=== PATIENT | female | born 2000 | race Caucasian/White ===

== ENCOUNTER → 2020-10-07 15:24 | Outpatient (BNVA) | payer OTHER, SELFPAY | PROVIDERS: Visit Provider Internal Medicine Gastroenterology ==

== ENCOUNTER 2021-07-21 14:54 | Outpatient (REF) | payer OTHER, SELFPAY ==
[2021-07-21 16:50] LABS: Hematocrit 42.3 % (37.0-47.0); Hemoglobin 14.6 g/dl (12.0-16.0); Mean Corpuscular HGB Conc 34.5 g/dl (31.0-35.0); Mean Corpuscular Hemoglobin 29.7 pg (27.0-33.0); Mean Corpuscular Volume 86.2 fL (80.0-98.0); Mean Platelet Volume 9.5 fL (9.4-12.3); Platelet Count 327 X10*3/uL (160-400); Red Blood Count 4.91 X10*6/uL (4.20-5.50); Red Cell Distribution Width 12.2 % (11.0-16.0); White Blood Count 6.6 X10*3/uL (4.8-10.8)
[2021-07-21 17:47] LABS: Alanine Aminotransferase 16 U/L (0-31); Alkaline Phosphatase 59 U/L (39-117); Anion Gap 15 (12-20); Aspartate Amino Transferase 20 U/L (5-31); Bilirubin Total 0.6 mg/dL (0.0-1.0); Blood Urea Nitrogen 8 mg/dL (9-16); Calcium 9.7 mg/dL (8.4-10.2); Carbon Dioxide 25 mmol/L (22-29); Chloride 106 mmol/L (96-108); Estimated Glomerular Filt Rate > 60; Glucose Random 93 mg/dL (60-115); Potassium 4.8 mmol/L (3.3-5.1); Sodium 141 mmol/L (135-145); Total Protein 7.5 g/dL (6.5-8.0)
[2021-07-21 18:03] LABS: TSH reflex Free T4 1.06 uIU/mL (0.32-4.0)
[2021-07-25 17:36] LABS: Transglutaminase Ab IgG <1.0 U/mL; Transglutaminase IgA <1.0 U/mL
== END 2021-07-21 14:55 | disposition home or self-care (01) ==
LOC: HO.LAB 14:54
PROVIDERS: Visit Provider Nurse Practitioner Family
DX: R10.11 Right upper quadrant pain (principal); K58.9 Irritable bowel syndrome, unspecified; R14.0 Abdominal distension (gaseous); K58.1 Irritable bowel syndrome with constipation; K21.9 Gastro-esophageal reflux disease without esophagitis; R11.0 Nausea
CPT/HCPCS: 36415; 80053; 83516; 84443; 85027

== ENCOUNTER → 2021-10-28 10:19 | Outpatient (BNVA) | payer OTHER, SELFPAY | PROVIDERS: Visit Provider Nurse Practitioner Family ==

== ENCOUNTER 2021-12-23 13:19 | Outpatient (REF) | payer OTHER, SELFPAY ==
[2021-12-24 12:10] LABS: BV Int Neg Control Negative (Negative); BV Int Pos Control Positive (Positive)
[2021-12-24 12:40] LABS: CT PCR NOT DETECTED (Not Detect.); NG PCR NOT DETECTED (Not Detect.)
== END 2021-12-23 13:20 | disposition home or self-care (01) ==
LOC: HO.LAB 13:19
PROVIDERS: Visit Provider Advanced Practice Midwife
DX: Z01.411 Encounter for gynecological examination (general) (routine) with abnormal findings (principal); Z20.2 Contact with and (suspected) exposure to infections with a predominantly sexual mode of transmission; R10.9 Unspecified abdominal pain; N94.6 Dysmenorrhea, unspecified
CPT/HCPCS: 87480; 87491; 87510; 87591; 87660; 88142

== ENCOUNTER 2022-01-02 14:18 | Outpatient (REF) | payer OTHER, SELFPAY ==
--- NOTE | ~2022-01-02 | US_ITS ---
EXAMINATION: US PELVIS CLINICAL INFORMATION: Dysmenorrhea. Pelvic pain. COMPARISON: CT abdomen pelvis without contrast 02/27/2019 TECHNIQUE: Ultrasound of the pelvis is performed using both transabdominal and transvaginal transducers along with Doppler. Transvaginal imaging is performed due to inadequate visualization transabdominally. FINDINGS: Uterus: The uterus is anteverted and measures 5.96 x 2.12 x 3.54 cm The double wall endometrial thickness is 0.39 cm. The uterus is smooth in contour and has normal myometrial echogenicity. No visible fibroid. Adnexa: Both ovaries are visualized. There is normal color flow to the adnexa. There is no ovarian torsion. There is no pelvic ascites or fluid collection. Right ovary measures 2.41 x 1.25 x 2.67 cm and volume 4.21 mL Left ovary measures 1.3 x 1.09 x 1.14 cm and volume 0.90 mL. There is no free fluid in the cul-de-sac. US/US pelvic and transvaginal IMPRESSION: Unremarkable pelvic ultrasound.
== END 2022-01-02 14:19 | disposition home or self-care (01) ==
LOC: HO.HMGCX 14:18
PROVIDERS: Visit Provider Advanced Practice Midwife
DX: R10.2 Pelvic and perineal pain (principal); N94.6 Dysmenorrhea, unspecified
CPT/HCPCS: 76830; 76856

== ENCOUNTER → 2022-01-16 15:08 | Outpatient (BNVA) | payer OTHER, SELFPAY | PROVIDERS: Visit Provider Advanced Practice Midwife | DX: Z13.89 Encounter for screening for other disorder (principal) ==

== ENCOUNTER 2023-05-20 14:17 | Outpatient (AMB) | payer OTHER, SELFPAY ==
[2023-05-20 14:32] VITALS: BP 120/76; BMI 36.6
--- NOTE | 2023-05-20 14:32 | A.OFFVIS_ITS ---
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 Scribed for RO Hammond by Lilia Blackwood durable medical equipment repairer, on 05/20/2023 at 2:50 pm EST. Loading Manager: Loading Manager Present (Angela) Allergies No Known Allergies Allergy (Verified 05/20/23 14:32) HPI HPI Comments History of Present Illness Details She is a premenopausal woman presenting for annual exam. Doing well with no entry level receptionist concerns. She admits to eating healthy and tries to stay active with exercise. Currently sexually active. Uses OCP for BC and is doing well, no menses in the past 6 months due to not taking a placebo week off. Denies vaginal itching and irritation. Reports vaginal irritation last week, believes it was due to over use of detergent, used hydrocortisone on the area and is now doing better. STD screening offered; she declines. Denies family hx of colon and ovarian cancer. Last pap smear 12/24/21. She denies any contraindications to control such as: migraines with aura, history of DVT or pulmonary emboli, high blood pressure, liver disease, thrombolic disorders, Lupus, +RAMSEY, or smoking. Reports occasional headaches. 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 Sexual orientation: Straight/Heterosexual Gender identity: Female Female Reproductive History Menstrual Age of Menarche: 9 control method: pills Total pregnancies: 0 Date of last pap smear: 12/24/21 (neg) Physical Exam Vital Signs: Last Vital Signs BP 120/76 05/20/23 14:32 BMI result Body Mass Index 36.6 Const General: cooperative, healthy appearing, no acute distress, well developed and alert Orientation/consciousness: patient oriented x3 HEENT Head: Yes normal to inspection Eyes General: appearance normal, both eyes and all related structures Neck Neck: Yes normal visual inspection Thyroid: Thyroid normal Chest Chest palpation & inspection: normal inspection of the chest Breast/axilla inspection: normal inspection of the breasts (no puckering, dimpling, peau de orange, retraction, discharge, masses) Breast/axilla palpation: normal palpation of the breasts Resp Effort & Inspection: normal respiratory effort GI Inspection: Yes normal to inspection Palpation (GI): Soft to palpation (to palpation) Rectal Exam - Female: deferred General: Yes bladder normal to inspection External Female Exam: normal external appearance and normal appearance of the urethra Speculum Exam - Vagina: normal appearance of the vagina, normal palpation and abnormal vaginal discharge white (clumpy) Speculum Exam - Cervix: normal appearance of the cervix and normal palpation Bimanual exam- vagina & uterus: normal palpation and normal palpation Bimanual Exam- Adnexa, other: normal adnexae and no masses Skin General skin exam: no rashes or lesions noted Neuro General: patient oriented x3 Cognition (Neuro): normal cognition Extrem General: Yes normal to inspection Psych Attitude: cooperative Thought process: Normal thought process present Assessment & Plan Assessment & Plan (1) Encounter for well woman exam: Code(s): Z01.419 - Encounter for gynecological examination (general) (routine) without abnormal findings Plan: Discussed: Current recommendations for pap smears per ASCCP guidelines. Breast awareness and periodic self breast exams. Maintaining a healthy lifestyle including a well balanced diet and routine exercise. All of her questions and concerns were addressed to the best of my ability. RTO in one year for AG. (2) Contraceptive surveillance: Code(s): Z30.40 - Encounter for surveillance of contraceptives, unspecified Plan: She was instructed to go to ER if she develops loss of vision, severe headache that does not resolve, chest pain, difficulty breathing, abdominal pain, or pain or tenderness in extremity. Call the office with any concerns. (3) Head ache: Code(s): R51.9 - Headache, unspecified Plan: Advised to hydrate well to avoid dehydration. (4) Vaginal discharge: Code(s): N89.8 - Other specified noninflammatory disorders of vagina Plan: BV testing done today. Await results and treat accordingly. Orders: Orders Bacterial Vaginosis Panel Today N89.8 - Other specified noninflammatory disorders of vagina Medications: Refilled desog-e.estradiol/e.estradiol 0.15-0.02 mgx21 /0.01 mg x 5 (Homer (28)) skip placebo week, take the pill daily-continuous daily dosing 1 tab PO DAILY 84 tabs 4RF Coding Level of Care Code Est Pt Prev Care 18-39y(19421) Diagnoses Encounter for well woman exam Z01.419 Contraceptive surveillance Z30.40 Head ache R51.9 Vaginal discharge N89.8
== END 2023-05-20 15:05 | disposition home or self-care (01) ==
PROVIDERS: PCP Family Medicine; Visit Provider Advanced Practice Midwife
DX: Z01.419 Encounter for gynecological examination (general) (routine) without abnormal findings (principal); Z30.40 Encounter for surveillance of contraceptives, unspecified; R51.9 Headache, unspecified; N89.8 Other specified noninflammatory disorders of vagina
CPT/HCPCS: 99395

== ENCOUNTER 2023-05-20 14:17 | Outpatient (REF) | payer OTHER, SELFPAY ==
[2023-05-21 11:38] LABS: BV Int Neg Control Negative (Negative); BV Int Pos Control Positive (Positive)
== END 2023-05-20 14:18 | disposition home or self-care (01) ==
LOC: HO.LAB 14:17
PROVIDERS: PCP Family Medicine; Visit Provider Advanced Practice Midwife
DX: Z01.419 Encounter for gynecological examination (general) (routine) without abnormal findings (principal); N89.8 Other specified noninflammatory disorders of vagina; R51.9 Headache, unspecified
CPT/HCPCS: 87480; 87510; 87660

== ENCOUNTER 2023-11-16 09:20 | Outpatient (AMB) | payer OTHER, SELFPAY ==
[2023-11-16 09:37] VITALS: BP 140/87; PULSE 115; BMI 34.6
--- NOTE | 2023-11-16 09:37 | A.OFFVIS_ITS ---
Intake Vital Signs 11/16/23 09:37 Height 5 ft 4 in Weight 201 lb 11.567 oz BMI 34.6 BP 140/87 H Blood Pressure Location Lt brachial Position Sitting Pulse 115 H Pulse Source Pulse Oximeter Intake Visit Reasons: follow up stool concerns Intake Note: Pt presents to the office today for a follow up for stool concerns. She states she had an issue in October with her stool being bright yellow for a week that wasnt solid. She is very frustrated because she is unable to each anything other than saltines and sometimes egg noodles. She states she doesn't know what to do. Pt states she will get nauseous from not eating much but denies any vomiting. She also states she will have constipation and diarrhea at different times. Allergies No Known Allergies Allergy (Verified 11/16/23 09:38) HPI follow up stool concerns HPI Details LAST VISIT IBS (irritable colon syndrome) Occasional postprandial abdominal cramping and bloating. Patient can continue dicyclomine, however I would like for her to move her bowels better. Patient was encouraged to try to drink senna tea if senna 1 or 2 tablets a day are not effective. Continue FODMAP diet, avoid dietary triggers. GERD (gastroesophageal reflux disease) Continue famotidine as ordered. Continue avoiding stressors and dietary triggers. Staying upright for minimal 3 hours after meals discussed with patient. Patient does have occasional epigastric discomfort and I will send her for upper endoscopy to further evaluate. Patient might need to switch to PPI instead. Treatment pending upper endoscopy results. Constipation Increase fluid intake, increase activity to promote better bowel motility. Eat more vegetables and fruits. Take Senokot 1-2 tablets every evening. Patient will call me if she will continue to be constipated. I will see patient after upper endoscopy, sooner on as needed basis. Patient is agreeable to this plan and verbalizes understanding of instructions. She was given the opportunity to ask questions and all questions answered. ? TODAY'S VISIT: Patient is here today for requested visit. Patient was seen in May of 2022. Patient never followed up. Patient states that she was starting to feel better and had things going on in her personal life. Patient states that she wa s moving and changing jobs. In October patient reports to have loose stools for 1 week 7 on [place] scale. Since then patient has been only able to tolerate sodium crackers and egg noodles. Patient frequently feels nauseous, epigastric discomfort and loose stools immediately after she eats anything else. Patient was taking in the past cholestyramine that was semi helpful. Patient has a history of cholecystectomy in 2017. Since then patient has been developing postprandial loose stools, occasional constipation. Lately her symptoms are exacerbated that she is not understanding why. Patient states that she has not change anything in her diet or any lifestyle. Patient gained 25 lb since last visit. Patient reports that she has not eat anything different. No travel to any exotic areas. 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 Sexual orientation: Straight/Heterosexual Gender identity: Female Female Reproductive History Menstrual Age of Menarche: 9 Review of Systems Const Denies weight gain and Denies weight loss ENT Reports no additional complaints, Denies dysphagia and Denies odynophagia Card Reports no additional complaints Resp Reports no additional complaints GI Reports abdominal pain, Denies belching, Denies melena, Reports bloating, Denies change in bowel habits, Denies dysphagia, Denies excessive flatus, Denies dyspepsia, Denies heartburn, Denies diarrhea, Reports loose stools, Reports nausea, Denies odynophagia and Denies vomiting Reports no additional complaints Musc Reports no additional complaints Neuro Reports no additional complaints Psych Reports no additional complaints Endo Reports no additional complaints Physical Exam Vital Signs: Last Vital Signs Pulse 115 H 11/16/23 09:37 BP 140/87 H 11/16/23 09:37 BMI result Body Mass Index 34.6 Const General: healthy appearing, no acute distress and well developed Nutritional Appearance: obese Orientation/consciousness: patient oriented x3 Resp Effort & Inspection: normal respiratory effort, able to speak in complete sentences, no tracheal deviation and symmetric chest movement Auscultation: clear to auscultation bilaterally Cardio Rate: regular rate GI Inspection: Yes normal to inspection, No distended and Yes obesity Palpation (GI): Soft to palpation, not firm, nontender and No hepatosplenomegaly present Auscultation: normal bowel sounds General: Yes no CVA tenderness Back/Spine/Pelvis Back: no CVA tenderness Skin General skin exam: elasticity normal, turgor normal and dry skin Neuro General: patient oriented x3 Psych Appearance: grossly normal Mental Status: mental status grossly normal Assessment & Plan Assessment & Plan (1) IBS (irritable colon syndrome): Code(s): K58.9 - Irritable bowel syndrome without diarrhea Qualifiers: Irritable bowel syndrome type: with constipation Qualified Code(s): K5 8.1 - Irritable bowel syndrome with constipation (2) Nausea: Code(s): R11.0 - Nausea (3) GERD (gastroesophageal reflux disease): Code(s): K21.9 - Gastro-esophageal reflux disease without esophagitis Qualifiers: Esophagitis presence: esophagitis presence not specified Qualified Code(s): K21.9 - Gastro-esophageal reflux disease without esophagitis (4) Postprandial diarrhea: Code(s): K52.9 - Noninfective gastroenteritis and colitis, unspecified (5) S/P cholecystectomy: Code(s): Z90.49 - Acquired absence of other specified parts of digestive tract Plan Patient will try to increase fiber to help her bulk stools. One tablet daily up to 2 tablets if she will continue with symptoms. Patient can take senna if she will become bound up. Low FODMAP diet discussed with patient. List of food recommended as well as list of food to avoid given to patient. Will rule out inflammatory bowel disease. Will check A1c, thyroid study, vitamin-D, B12, folate. Will order GI panel. I will see patient in 2 months, sooner on as needed basis. Patient will call the office if she will continue to have these symptoms. Patient is agreeable to this plan and verbalizes understanding of instructions. She was given the opportunity to ask questions and all questions answered. Thank you for allowing me to participate in her care Orders: Orders Hemoglobin A1c Today E11.9 - Type 2 diabetes mellitus without complications C Reactive Protein Today K58.9 - Irritable bowel syndrome without diarrhea Vitamin B12 and Folate Today R19.7 - Diarrhea, unspecified TSH reflex Free T4 Today K59.00 - Constipation, unspecified Calprotectin, Fecal Today R15.9 - Full incontinence of feces GI Panel Today R19.7 - Diarrhea, unspecified Vitamin D 25-OH (D2 and D3) Today E55.9 - Vitamin D deficiency, unspecified Medications: New methylcellulose (laxative) (Citrucel) take it with full glass of water 500 mg PO DAILY 90 tabs 2RF K59.00 - Constipation, unspecified omeprazole 20 mg PO DAILY 30 caps 3RF K21.9 - Gastro-esophageal reflux disease without esophagitis Coding Level of Care Code Est Pt Level 4 (57664) Diagnoses Irritable bowel syndrome with constipation K58.1 Irritable bowel syndrome type: with constipation Nausea R11.0 Gastroesophageal reflux disease, unspecified whether esophagitis present K21.9 Esophagitis presence: esophagitis presence not specified Postprandial diarrhea K52.9 S/P cholecystectomy Z90.49 Time Spent (min) 40 Comment 25 minutes spent with patient and additional 15 minutes spent reviewing her records
== END 2023-11-16 10:10 | disposition home or self-care (01) ==
PROVIDERS: PCP Nurse Practitioner Family; Visit Provider Nurse Practitioner Family
DX: K58.2 Mixed irritable bowel syndrome (principal); R11.0 Nausea; K21.9 Gastro-esophageal reflux disease without esophagitis; Z90.49 Acquired absence of other specified parts of digestive tract
CPT/HCPCS: 99214

== ENCOUNTER → 2023-11-16 09:20 | Outpatient (BNVA) | payer OTHER, SELFPAY | PROVIDERS: PCP Nurse Practitioner Family; Visit Provider Nurse Practitioner Family ==

== ENCOUNTER 2023-11-19 08:20 | Outpatient (REF) | payer OTHER, SELFPAY ==
[2023-11-20 15:14] LABS: BV Int Neg Control Negative (Negative); BV Int Pos Control Positive (Positive)
== END 2023-11-19 08:21 | disposition home or self-care (01) ==
LOC: HO.LNP 08:20
PROVIDERS: PCP Nurse Practitioner Family; Visit Provider Advanced Practice Midwife
DX: Z32.02 Encounter for pregnancy test, result negative (principal); R10.2 Pelvic and perineal pain; N92.1 Excessive and frequent menstruation with irregular cycle
CPT/HCPCS: 81025; 87480; 87510; 87660

== ENCOUNTER 2023-11-19 08:20 | Outpatient (AMB) | payer OTHER, SELFPAY ==
[2023-11-19 08:25] VITALS: BP 122/70; BMI 34.4
--- NOTE | 2023-11-19 08:25 | A.OFFVIS_ITS ---
Intake Vital Signs 11/19/23 08:25 Height 5 ft 4 in Weight 200 lb 9.93 oz BMI 34.4 BP 122/70 Intake Visit Reasons: bleeding Intake Note: c/o of spotting with control pills Employment Programs Analyst Required: No Information Interpreted: non-clinical & clinical Plaster Machine Tender: Plaster Machine Tender Present (Parris TORRES) Accompanied by: Self / Same As Patient Allergies No Known Allergies Allergy (Verified 11/19/23 08:26) Is last menstrual period known: No HPI HPI Comments History of Present Illness Details Patient presents with breakthrough bleeding while on the control pill, she admits to missing one dose at the end of October. Onset of bleeding started around November 03. She reports some pelvic pressure around her cervix and ovary on her left side. She admits to an occasional pain at the outer portion the and at the top of the vaginal canal during intimacy, about 50% of the time. She denies any urinary symptoms. Has an occasional cloudy vaginal discharge with a sweet odor. She is also seeing GI for symptoms of significant diarrhea, onset was a few days before the bleeding started. She reports everything that she eats goes right through her. She is trying to hydrate well. She denies any fever or flu-like sy mptoms. Partner with a history of testicular cancer in infertility. Denies any risk to . [facility] Medical History (Updated 11/19/23 @ 08:28 by Parris Amanda CMA) Overweight Head ache Dysmenorrhea IBS (irritable colon syndrome) Nausea GERD (gastroesophageal reflux disease) Irritable bowel syndrome with diarrhea Surgical History Hx of cholecystectomy Hx of endoscopy Hx of colonoscopy Family History Mother Diabetes Obese Father Obese HTN (hypertension) Maternal Uncle Cancer Maternal Aunt Breast cancer Social History Household Members: Spouse Alcohol intake: current Alcohol intake frequency: a few times a month Patient Tobacco Use Status: Never used Tobacco Current occupational status: employed 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 Sexual orientation: Straight/Heterosexual Gender identity: Female Female Reproductive History Menstrual Age of Menarche: 9 Review of Systems Const All systems reviewed & are unremarkable except as noted in HPI and below Physical Exam Vital Signs: Last Vital Signs BP 122/70 11/19/23 08:25 BMI result Body Mass Index 34.4 Const General: cooperative, healthy appearing and no acute distress Orientation/consciousness: patient oriented x3 GI Inspection: Yes normal to inspection Palpation (GI): Soft to palpation and Other GI palpation findings present (Nontender) Rectal Exam - Female: visual inspection normal General: Yes bladder normal to palpation External Female Exam: normal appearance of the urethra Speculum Exam - Vagina: normal appearance of the vagina, normal palpation and normal vaginal discharge Speculum Exam - Cervix: normal appearance of the cervix and normal palpation Bimanual exam- vagina & uterus: normal bimanual exam, normal palpation, uterine size normal, bladder normal to palpation, normal palpation, uterine shape normal and non-tender Bimanual Exam- Adnexa, other: normal adnexae and tender (Right side) Neuro General: patient oriented x3 Results AMB Test Urine AMB Test Urine Negative Last Edit by Parris Amanda CMA on 09:10 Results Reviewed Results Reviewed: Laboratory Last Values [facility]st Clinic Negative 11/19/23 09:09 Assessment & Plan Assessment & Plan (1) Pelvic pain: Code(s): R10.2 - Pelvic and perineal pain (2) Breakthrough bleeding on control pills: Code(s): N92.1 - Excessive and frequent menstruation with irregular cycle Plan Discussed: Most likely ongoing bleeding is due to missed pill and she would regulate soon, although has a significant GI issue which could be contributing to how she been feeling. Plan pelvic ultrasound, BV panel. Encouraged her to continue hydration, and follow up with GI. Follow-up ultrasound results in person. All of her questions and concerns were addressed to the best of my ability and shared decision making. She is agreeable to the plan of care. This note is constructed using voice recognition software. While every effort has been made to ensure accuracy, child and adolescent psychologist errors may have been included. Orders: Orders AMB HCG Urine Test Today Z32.02 - Encounter for test, result negative US pelvic and transvaginal Today R10.2 - Pelvic and perineal pain Bacterial Vaginosis Panel Today R10.2 - Pelvic and perineal pain Coding Level of Care Code Est Pt Level 3 (37732) Diagnoses Pelvic pain R10.2 Breakthrough bleeding on control pills N92.1
== END 2023-11-19 08:57 | disposition home or self-care (01) ==
LOC: HO.HWS 08:20
PROVIDERS: PCP Nurse Practitioner Family; Visit Provider Advanced Practice Midwife
DX: R10.2 Pelvic and perineal pain (principal); N92.1 Excessive and frequent menstruation with irregular cycle; Z32.02 Encounter for pregnancy test, result negative
CPT/HCPCS: 99213

== ENCOUNTER 2023-12-06 11:58 | Outpatient (REF) | payer OTHER, SELFPAY ==
[2023-12-06 14:43] LABS: Estimated Average Glucose 85 mg/dL; Hemoglobin A1c % 4.6 % (<6.0)
[2023-12-06 15:07] LABS: C Reactive Protein 8.59 mg/dL (< or = 0.50)
[2023-12-06 15:18] LABS: TSH reflex Free T4 2.07 uIU/mL (0.32-4.0)
[2023-12-06 15:24] LABS: Folate 13.5 ng/mL (> or = 4.0); Vitamin B12 799 pg/mL (200-900)
[2023-12-09 12:24] LABS: Vitamin D 25-OH, D2 <4 ng/mL; Vitamin D 25-OH, D3 38 ng/mL; Vitamin D 25-OH, Total 38 ng/mL (30-100)
== END 2023-12-06 11:59 | disposition home or self-care (01) ==
LOC: HO.WFDLDS 11:58
PROVIDERS: Visit Provider Nurse Practitioner Family
DX: K58.9 Irritable bowel syndrome, unspecified (principal); K59.00 Constipation, unspecified; E11.9 Type 2 diabetes mellitus without complications; R19.7 Diarrhea, unspecified; E55.9 Vitamin D deficiency, unspecified
CPT/HCPCS: 36415; 82306; 82607; 82746; 83036; 84443; 86140

== ENCOUNTER 2023-12-21 13:15 | Outpatient (AMB) | payer OTHER, SELFPAY ==
--- NOTE | 2023-12-21 13:20 | A.OFFVIS_ITS ---
Intake Vital Signs 12/21/23 13:25 Height 5 ft 4 in Weight 200 lb 9.93 oz BMI 34.4 BP 135/88 Blood Pressure Location Lt brachial Position Sitting Pulse 97 Intake Visit Reasons: follow up Intake Note: Odalis presents in the office as a follow up. CC: She states that she does not have any control on her bowels. She has the urge to go she has a 15 second time that she has to go to the bathroom. 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 She cannot leave her kids unsupervised. Its a fully formed owel movement 95% of the time - it is not an issue at home. It is only an issue when she is at school. Allergies No Known Allergies Allergy (Verified 12/21/23 13:26) HPI follow up HPI Details LAST VISIT IBS (irritable colon syndrome) Nausea GERD (gastroesophageal reflux disease) Postprandial diarrhea S/P cholecystectomy Plan Patient will try to increase fiber to help her bulk stools. One tablet daily up to 2 tablets if she will continue with symptoms. Patient can take senna if she will become bound up. Low FODMAP diet discussed with patient. List of food recommended as well as list of food to avoid given to patient. Will rule out inflammatory bowel disease. Will check A1c, thyroid study, vitamin-D, B12, folate. Will order GI panel. I will see patient in 2 months, sooner on as needed basis. Patient will call the office if she will continue to have these symptoms. Patient is agreeable to this plan and verbalizes understanding of instructions. She was given the opportunity to ask questions and all questions answered. ? Thank you for allowing me to participate in her care Orders Orders Hemoglobin A1c Today E11.9 C Reactive Protein Today K58.9 Vitamin B12 and Folate Today R19.7 TSH reflex Free T4 Today K59.00 Calprotectin, Fecal Today R15.9 GI Panel Today R19.7 Vitamin D 25-OH (D2 and D3) Today E55.9 Medications New methylcellulose (laxative) (Citrucel) take it with full glass of water 500 mg PO DAILY 90 tabs 2RF K59.00 omeprazole 20 mg PO DAILY 30 caps 3RF K21.9 TODAY'S VISIT Patient is here today for follow-up and to discuss lab results. Patient had normal labs except for CRP elevated. Patient is not aware of having any inflammatory disease. Continues to have postprandial loose stools. Patient states that she is unable to hold many times as she needs to immediately go to the bathroom. Patient states that she tried taking Citrucel, however she states that she was taking that at night time and felt very nauseous all night. Patient reports that she used to take cholestyramine, however that was changed to sucralfate and states that she had better results. Patient denies any nausea or vomiting. Reports to have decent control with omeprazole of her reflux., however she will have epigastric discomfort occasionally. Patient denies any melena, hematochezia, unintentional weight loss or ribbon like stools. Still awaiting for PA for stool calprotectin to rule out IBD. We also ordered GI panel to rule out any viral component. 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 Sexual orientation: Straight/Heterosexual Gender identity: Female Female Reproductive History Menstrual Age of Menarche: 9 Review of Systems Const Denies weight gain and Denies weight loss ENT Reports no additional complaints, Denies dysphagia and Denies odynophagia Card Reports no additional complaints Resp Reports no additional complaints GI Reports abdominal pain, Denies belching, Denies melena, Denies bloating, Denies change in bowel habits, Denies dysphagia, Denies excessive flatus, Denies dyspepsia, Reports heartburn, Denies diarrhea, Reports loose stools, Denies nausea, Denies odynophagia and Denies vomiting Reports no additional complaints Musc Reports no additional complaints Neuro Reports no additional complaints Psych Reports no additional complaints Endo Reports no additional complaints Physical Exam Vital Signs: Last Vital Signs Pulse 97 12/21/23 13:25 BP 135/88 12/21/23 13:25 BMI result Body Mass Index 34.4 Const General: healthy appearing and no acute distress Nutritional Appearance: obese Orientation/consciousness: patient oriented x3 Resp Effort & Inspection: normal respiratory effort, able to speak in complete sentences, no tracheal deviation and symmetric chest movement Auscultation: clear to auscultation bilaterally Cardio Rate: regular rate GI Inspection: Yes normal to inspection, No distended and Yes obesity Palpation (GI): Soft to palpation, not firm, nontender and No hepatosplenomegaly present Auscultation: normal bowel sounds General: Yes no CVA tenderness Back/Spine/Pelvis Back: no CVA tenderness Skin General skin exam: elasticity normal, turgor normal and dry skin Neuro General: patient oriented x3 Psych Appearance: grossly normal Mental Status: mental status grossly normal Results Reviewed Results Reviewed: Laboratory Tests 12/06/23 12:00 Estimat Average Glucose 85 Hemoglobin A1c % 4.6 C-Reactive Protein 8.59 H Vitamin B12 799 25-OH Vitamin D Total 38 Folate 13.5 TSH 2.07 Assessment & Plan Assessment & Plan (1) IBS (irritable colon syndrome): Code(s): K58.9 - Irritable bowel syndrome without diarrhea Qualifiers: Irritable bowel syndrome type: with constipation Qualified Code(s): K58.1 - Irritable bowel syndrome with constipation (2) Nausea: Code(s): R11.0 - Nausea (3) GERD (gastroesophageal reflux disease): Code(s): K21.9 - Gastro-esophageal reflux disease without esophagitis Qualifiers: Esophagitis presence: esophagitis presence not specified Qualified Code(s): K21.9 - Gastro-esophageal reflux disease without esophagitis (4) Postprandial diarrhea: Code(s): K52.9 - Noninfective gastroenteritis and colitis, unspecified (5) S/P cholecystectomy: Code(s): Z90.49 - Acquired absence of other specified parts of digestive tract Plan Patient will start sucralfate twice a day with meals at noon time and with dinner. Cont. with omeprazole in the morning. Patient can start taking fiber supplement after breakfast. Avoid dietary triggers. Staff to call insurance company to check the status of PA for fecal calprotectin. Patient will call the insurance company herself this week. I will see her in 3 months, sooner on as needed basis. Patient is agreeable to this plan and verbalizes understanding of instructions. She was given the opportunity to ask questions and all questions answered. Thank you for allowing me to participate in her care Medications: New sucralfate 1 g PO BID 180 tabs 1RF K21.9 - Gastro-esophageal reflux disease without esophagitis Coding Level of Care Code Est Pt Level 4 (58966) Diagnoses Irritable bowel syndrome with constipation K58.1 Irritable bowel syndrome type: with constipation Nausea R11.0 Gastroesophageal reflux disease, unspecified whether esophagitis present K21.9 Esophagitis presence: esophagitis presence not specified Postprandial diarrhea K52.9 S/P cholecystectomy Z90.49 Time Spent (min) 35 Comment 20 minutes spent with patient and additional 15 minutes spent reviewing her records
[2023-12-21 13:25] VITALS: BP 135/88; PULSE 97; BMI 34.4
== END 2023-12-21 13:58 | disposition home or self-care (01) ==
PROVIDERS: PCP Family Medicine; Visit Provider Nurse Practitioner Family
DX: K58.2 Mixed irritable bowel syndrome (principal); R11.0 Nausea; K21.9 Gastro-esophageal reflux disease without esophagitis; Z90.49 Acquired absence of other specified parts of digestive tract
CPT/HCPCS: 99214

== ENCOUNTER → 2023-12-21 13:15 | Outpatient (BNVA) | payer OTHER, SELFPAY | PROVIDERS: PCP Family Medicine; Visit Provider Nurse Practitioner Family ==

== ENCOUNTER 2024-03-31 10:49 | Outpatient (AMB) | payer OTHER, SELFPAY ==
--- NOTE | 2024-03-31 11:15 | MHC.PC.OV ---
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 violence Your medicines and risk for interactions SKIN SELF-EXAM Your provider may check your skin for signs of skin cancer, especially if you're at high risk, such as if you: Have had skin cancer before Have close relatives with skin cancer Have a weakened immune system OTHER SCREENING Talk with your provider about colon cancer screening if you have a strong family history of colon cancer or polyps, or if you have had inflammatory bowel disease or polyps yourself. Routine bone density screening of women under 40 is not recommended. Coding Level of Care Code New Pt Prev Care 18-39yr(58753 Diagnoses Encounter for general adult medical examination without abnormal findings Z00.00 Gastroesophageal reflux disease, unspecified whether esophagitis present K21.9 Esophagitis presence: esophagitis presence not specified LONNIE (generalized anxiety disorder) F41.1 Screening for tuberculosis Z11.1 MDD (major depressive disorder), recurrent episode F33.9 Obesity (BMI 30.0-34.9) E66.9 Eczema L30.9 Additional Codes LONNIE-7 Assessment Billing - LONNIE-7 Assessment Tool: LONNIE-7 Assessment [id number] ([id number])
[2024-03-31 11:30] VITALS: BP 100/60; PULSE 102; RESP 26; TEMP 37.1; BMI 34.2
[2024-03-31 14:57] VITALS: PULSE 90
== END 2024-03-31 12:11 | disposition home or self-care (01) ==
PROVIDERS: PCP Nurse Practitioner Family; Visit Provider Nurse Practitioner Family
DX: Z00.00 Encounter for general adult medical examination without abnormal findings (principal); F33.9 Major depressive disorder, recurrent, unspecified; K21.9 Gastro-esophageal reflux disease without esophagitis; F41.1 Generalized anxiety disorder; Z11.1 Encounter for screening for respiratory tuberculosis; E66.9 Obesity, unspecified; L30.9 Dermatitis, unspecified
CPT/HCPCS: 99385

== ENCOUNTER 2024-06-02 15:25 | Outpatient (AMB) | payer BC, SELFPAY ==
--- NOTE | 2024-06-02 15:27 | MHC.PC.OV ---
Vital Signs 06/02/24 15:29 06/02/24 15:53 Height 5 ft 4 in Weight 211 lb 8 oz BMI 36.3 BP 132/70 Blood Pressure Location Lt brachial Position Sitting Respiration 15 Pulse 110 H 88 Pulse Source Pulse Oximeter Auscultation Pulse Oximetry (%) 98 Oxygen Delivery Method Room Air Intake Visit Reasons: disscussing weightloss meds Intake Note: Patient here for weight loss meds and having trouble sleeping Allergies No Known Allergies Allergy (Verified 06/02/24 15:41) Medication List - Last Reconciled 06/02/24 by Disha Mercado, [facility] desog-e.estradiol/e.estradiol 0.15-0.02 mgx21 /0.01 mg x 5 (Pimtrea (28)) 1 tab PO DAILY famotidine 20 mg PO ONCE omeprazole 20 mg PO DAILY propranolol 10 mg PO BID PRN sucralfate 1 g PO BID triamcinolone acetonide 0.025% 1 appl topical BID PRN Tobacco use date assessed: 03/31/24 Dental Screening Dental Screen Date: 03/31/24 HPI HPI Comments History of Present Illness Details 23 y/o F chronic GERD, LONNIE with panic, MDD, obesity, eczema, restrictive eating disorder Here today to discuss 1) sleep disorder. taking melatonin. has tried IR and ER. 3mg. Peg on Sundays, spends hours trying to fall asleep. Normal sleep hygiene. Tosses and turns. Feels like a zombie at work. Wakes at 330-4 and cannot fall asleep. Sleeping avg 6 hours. Does not feel this is enough. 2) Wt loss meds. When food goes in her mouth, she wants to keep eating. She can eat til full and then eat again in 20 minutes. Does have some emotional eating. Some binging. Denies purging. 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 Has never been on meds for wt loss. Would like something to quiet food noise . Exam Awake alert NAD RRR LS CTAB Mood and affect appropriate Plan: Start trazodone 25-50mg prn insomnia, titrate to effect. Cont sleep hygiene. Denies personal history sz. Want to stabilize sleep first and then start her on Wellbutrin XL 150mg and titrate to effect. 2-3 weeks by phone to f/u on insomnia/med start This note is constructed using voice recognition software. While every effort has been made to ensure accuracy in healthcare management consultant, still errors may have been included Sometimes, these errors may affect the content or meaning of the given sentence . Total time spent caring for the patient today was 30 minutes. This includes time spent before the visit reviewing the chart, time spent during the visit, and time spent after the visit on documentation PFSH Medical History (Updated 06/02/24 @ 15:56 by Disha Mercado, [facility]) Depression Anxiety Eczema Overweight Head ache Dysmenorrhea IBS (irritable colon syndrome) Nausea GERD (gastroesophageal reflux disease) Irritable bowel syndrome with diarrhea Surgical History (Updated 03/31/24 @ 11:38 by Crystal Power CMA) H/O colectomy Hx of cholecystectomy Hx of endoscopy Hx of colonoscopy Family History (Updated 03/31/24 @ 11:39 by Crystal Power CMA) Mother Diabetes Obese Father Obese HTN (hypertension) Maternal Uncle Cancer Maternal Aunt Breast cancer Paternal Grandmother Alcohol abuse Other Substance abuse Social History (Updated 03/31/24 @ 11:29 by Crystal Power CMA) Household Members: Spouse Housing: Apartment Alcohol intake: current Alcohol intake frequency: a few times a month Patient Tobacco Use Status: Never used Tobacco e-Cigarette/Vaping Use: Never Used service: No Current occupational status: employed 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 1. Little interest or pleasure in doing things: several days 2. Feeling down, depressed, or hopeless: not at all 3. Trouble falling or staying asleep, or sleeping too much: more than half the days 4. Feeling tired or having little energy: several days 5. Poor appetite or overeating: more than half the days 6. Feeling bad about yourself - or that you are a failure or have let yourself or your family down: not at all 7. Trouble concentrating on things, such as reading the newspaper or watching television: not at all 8. Moving or speaking so slowly that other people could have noticed. Or the opposite - being so fidgety or restless that you have been moving around a lot more than usual: not at all 9. Thoughts that you would be better off or of hurting yourself in some way: not at all Total score: 6 31604 - PHQ-9 Billing: Yes Source: Developed by Drs. Ivan Mckeon, Guillermina Zapien, Ramos Ng and colleagues, with an educational radha from [employer]. Thrive Questionnaire Date Thrive assessed: 03/31/24 LONNIE-7 AMB Questionnaire LONNIE-7 Date LONNIE - 7 assessed: 06/02/24 Feeling nervous, anxious, or on edge: 1 = Several days Not being able to stop or control worryin = Not at all Worrying too much about different things: 1 = Several days Trouble relaxin = Several days Being so restless that it is hard to sit still: 0 = Not at all Becoming easily annoyed or irritable: 1 = Several days Feeling afraid as if something awful might happen: 0 = Not at all Total LONNIE-7 score (0-4 normal; 5-9 mild; 10-14 moderate; 15-21 severe): 4 Source: Developed by Drs. Ivan Mckeon, Guillermina Zapien, Ramos Ng and colleagues, with an educational radha from [employer]. LONNIE-7 Assessment Billing LONNIE-7 Assessment Tool: LONNIE-7 Assessment 62943 Physical exam (Primary Care) Vital Signs: Last Vital Signs Pulse 110 H 06/02/24 15:29 Resp 15 06/02/24 15:29 BP 132/70 06/02/24 15:29 Pulse Ox 98 06/02/24 15:29 Oxygen Delivery Method Room Air 06/02/24 15:29 BMI result Body Mass Index 36.3 Tobacco/Smoking Status: Tobacco use Status Tobacco use date assessed 03/31/24 06/02/24 15:32 Patient Tobacco Use Status Never used Tobacco 06/02/24 15:32 e-Cigarette/Vaping Use Never Used 06/02/24 15:32 PHQ-9: PHQ-9 Score PHQ-9: Total score 6 06/02/24 15:33 Thrive Assessment: Date of Thrive Assessment Date Thrive assessed 03/31/24 06/02/24 15:32 Assessment and Plan Assessment & Plan (1) Insomnia: Code(s): G47.00 - Insomnia, unspecified Qualifiers: Insomnia type: primary Qualified Code(s): F51.01 - Primary insomnia (2) Obesity (BMI 30.0-34.9): Code(s): E66.9 - Obesity, unspecified Medications: New trazodone 25 mg (1/2 x 50 mg) PO DAILY PRN 30 tabs 0RF insomnia Coding Level of Care Code Est Pt Level 4 (50976) Diagnoses Primary insomnia F51.01 Insomnia type: primary Obesity (BMI 30.0-34.9) E66.9 Additional Codes LONNIE-7 Assessment Billing - LONNIE-7 Assessment Tool: LONNIE-7 Assessment 89053 ([id number])
[2024-06-02 15:29] VITALS: BP 132/70; PULSE 110; RESP 15; O2SAT 98; BMI 36.3
[2024-06-02 15:53] VITALS: PULSE 88
== END 2024-06-02 15:59 | disposition home or self-care (01) ==
PROVIDERS: PCP Family Medicine; Visit Provider Nurse Practitioner Family
DX: F51.01 Primary insomnia (principal); E66.9 Obesity, unspecified; Z68.36 Body mass index [BMI] 36.0-36.9, adult

== ENCOUNTER → 2024-06-02 15:25 | Outpatient (BNVA) | payer OTHER, SELFPAY | PROVIDERS: PCP Family Medicine; Visit Provider Nurse Practitioner Family | DX: F51.01 Primary insomnia (principal); E66.9 Obesity, unspecified; Z68.36 Body mass index [BMI] 36.0-36.9, adult | CPT/HCPCS: 96127 ==

== ENCOUNTER 2024-06-08 14:54 | Outpatient (REF) | payer BC, SELFPAY ==
--- NOTE | ~2024-06-08 | CT_ITS ---
EXAMINATION: CT ENTEROGRAPHY ABDOMEN AND PELVIS WITH CONTRAST CLINICAL INFORMATION: Crohn's disease. COMPARISON: February 27, 2019. TECHNIQUE: Study performed with oral VoLumen (1350 mL) and 480 mL of water to distend the abdomen. The patient was injected with 85 mL Omnipaque 350 intravenous contrast which was administered without adverse effect. Coronal and sagittal reformatted images were obtained at the technologist's workstation. This CT examination was performed using dose optimization techniques as appropriate, variously including the following: *Automated exposure control *Adjustment of mA and/or kV according to patient size (this includes techniques or standardized protocols for targeted exams where dose is matched to indication/reason for exam; i.e. extremities or head) *Use of iterative reconstruction technique DLP: 611 mGy-cm FINDINGS: GASTROINTESTINAL FINDINGS: Stomach: Well-distended and normal in appearance. Small intestine: Satisfactorily distended and normal in appearance. Large intestine: Well-distended and normal in appearance. No perirectal changes demonstrated. The appendix appears unremarkable. Additional findings: No abnormal enhancement of the vasa recta or significant mesenteric or retroperitoneal lymphadenopathy is seen. No abdominal abscess or fistulous tract demonstrated. LUNG BASES: The lung bases appear clear, with no evidence of inflammation or nodules. LIVER, GALLBLADDER, AND BILIARY TREE: The liver appears unremarkable in size, shape, and attenuation. No focal hepatic lesion or biliary ductal dilatation is appreciated. Gallbladder not visualized, suggesting prior surgical removal. PANCREAS: Unremarkable SPLEEN: Unremarkable ADRENAL GLANDS: Unremarkable KIDNEYS AND URETERS: Approximately 2.3 cm benign left upper pole simple renal cyst for which no further dedicated follow-up imaging as indicated. The kidneys otherwise appear unremarkable in size, shape, and attenuation. No hydronephrosis, hydroureter, or calculi seen. BLADDER: Unremarkable ABDOMINAL WALL: No significant hernia is appreciated. LYMPH NODES: No evidence of adenopathy by size criteria. VASCULAR: Unremarkable PELVIC VISCERA: Unremarkable OSSEOUS STRUCTURES: Unremarkable CT/CT enterography IMPRESSION: No significant abnormal finding. Electronically signed by: Rishi Hollins MD 06/09/2024 09:03 AM EDT
[2024-06-08] MEDS: iohexoL 350 MG/ML 100 ML INFUS..BTL IV (16:38)
[2024-06-08] MEDS: Sorbitol/Mannit/Xanth Imaging 500 ML LIQUID 1500 ML PO (16:40)
== END 2024-06-08 14:55 | disposition home or self-care (01) ==
LOC: HO.CT 14:54
PROVIDERS: PCP Nurse Practitioner Family; Visit Provider Nurse Practitioner Family
DX: K50.00 Crohn's disease of small intestine without complications (principal)
CPT/HCPCS: 74177; Q9967

== ENCOUNTER 2024-06-19 16:01 | Outpatient (AMB) | payer BC, SELFPAY ==
--- NOTE | 2024-06-19 16:01 | MHC.PC.OV ---
Intake Visit Reasons: 2-3 weeks telehealth fu insomnia/med start Allergies No Known Allergies Allergy (Verified 06/19/24 16:05) Medication List - Last Reconciled 06/19/24 by Disha Mercado [facility] desog-e.estradiol/e.estradiol 0.15-0.02 mgx21 /0.01 mg x 5 (Pimtrea (28)) 1 tab PO DAILY famotidine 20 mg PO ONCE omeprazole 20 mg PO DAILY propranolol 10 mg PO BID PRN sucralfate 1 g PO BID trazodone 25 mg (1/2 x 50 mg) PO DAILY PRN 90 days triamcinolone acetonide 0.025% 1 appl topical BID PRN Tobacco use date assessed: 03/31/24 Dental Screening Dental Screen Date: 03/31/24 HPI HPI Comments History of Present Illness Details Afia 24 y/o F chronic GERD, LONNIE with panic, MDD, obesity, eczema, restrictive eating disorder Telehealth visit to follow up today insomnia. Insomnia is heck of a lot better, taking 25 mg and not 50mg. Takes about 45-60min to kick in. Once it does, sleeps easily. Not waking. If anything about 10 minutes before alarm. this is great improvement... what she thinks she will do over vacation, will try increased dose. does not want to take higher dose while working. Does not take on Fri and Sat. Otherwise taking Sun-Yamini. Engagement with kids better. No longer yawning on drive to work. Would like to continue. Open to starting Wellbutrin XL to help lose weight. At last visit, talked about: When food goes in her mouth, she wants to keep eating. She can eat til full and then eat again in 20 minutes. Does have some emotional eating. Some binging. Denies purging. 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 Has never been on meds for wt loss. Would like something to quiet food noise . Reviewed medication instructions, use and f/u. All questions answered. Plan: Cont trazodone 25-50mg prn insomnia, titrate to effect. Cont sleep hygiene. Denies personal history sz. Start her on Wellbutrin XL 150mg and titrate to effect. Please weigh self at home, first thing in the morning, undressed and send me this weight to use as the start weight, otherwise please do not focus on the scale. please repeat this wt on the day of our next visit. FU: 4-6weeks by phone, sooner PRN This note is constructed using voice recognition software. While every effort has been made to ensure accuracy in combatant diver officer, still errors may have been included Sometimes, these errors may affect the content or meaning of the given sentence . Total time spent caring for the patient today was 15 minutes. This includes time spent before the visit reviewing the chart, time spent during the visit, and time spent after the visit on documentation [facility] Medical History (Updated 06/02/24 @ 15:56 by Disha Mercado, [facility] Depression Anxiety Eczema Overweight Head ache Dysmenorrhea IBS (irritable colon syndrome) Nausea GERD (gastroesophageal reflux disease) Irritable bowel syndrome with diarrhea Surgical History (Updated 03/31/24 @ 11:38 by Crystal Power CMA) H/O colectomy Hx of cholecystectomy Hx of endoscopy Hx of colonoscopy Family History (Updated 03/31/24 @ 11:39 by Crystal Power CMA) Mother Diabetes Obese Father Obese HTN (hypertension) Maternal Uncle Cancer Maternal Aunt Breast cancer Paternal Grandmother Alcohol abuse Other Substance abuse Social History (Updated 03/31/24 @ 11:29 by Crystal Power CMA) Household Members: Spouse Housing: Apartment Alcohol intake: current Alcohol intake frequency: a few times a month Patient Tobacco Use Status: Never used Tobacco e-Cigarette/Vaping Use: Never Used service: No Current occupational status: employed 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 Ivan Mckeon, Guillermina Zapien, Ramos Ng and colleagues, with an educational radha from [employer]. Physical exam (Primary Care) Tobacco/Smoking Status: Tobacco use Status Tobacco use date assessed 03/31/24 06/02/24 15:32 Patient Tobacco Use Status Never used Tobacco 06/02/24 15:32 e-Cigarette/Vaping Use Never Used 06/02/24 15:32 Thrive Assessment: Date of Thrive Assessment Date Thrive assessed 03/31/24 06/02/24 15:32 Telehealth Telehealth Telehealth Platform: Telephone Location of provider rendering services: practice address Location of patient: address on file Patient Identification confirmed using: Name, : Yes Telehealth method: voice only Patient verbally consented to treatment: Yes Patient verbally consented to billing insurance company: Yes Patient informed of any privacy concerns related to visit: Yes Minutes spent on Phone/Video with Pt.: 11 Coding Level of Care Code Tele Est Pt Level 2 (59199) Complex EM visit Add On G2211 Diagnoses Primary insomnia F51.01 Insomnia type: primary Obesity (BMI 30.0-34.9) E66.9 LONNIE (generalized anxiety disorder) F41.1 Assessment & Plan Assessment & Plan (1) Insomnia: Code(s): G47.00 - Insomnia, unspecified Category: Medical Qualifiers: Insomnia type: primary Qualified Code(s): F51.01 - Primary insomnia Plan: . (2) Obesity (BMI 30.0-34.9): Code(s): E66.9 - Obesity, unspecified Category: Medical Plan: . (3) LONNIE (generalized anxiety disorder): Code(s): F41.1 - Generalized anxiety disorder Category: Medical Plan: . Medications: New bupropion HCl XL (Wellbutrin XL) 150 mg PO QAM 30 tabs 1RF Changed From trazodone 25 mg (1/2 x 50 mg) PO DAILY PRN 30 tabs 0RF insomnia To trazodone 25 mg (1/2 x 50 mg) PO DAILY 90 days PRN 45 tabs 0RF insomnia
== END 2024-06-19 16:13 | disposition home or self-care (01) ==
LOC: HO.HMCFM 16:02
PROVIDERS: PCP Nurse Practitioner Family; Visit Provider Nurse Practitioner Family
DX: F51.01 Primary insomnia (principal); E66.811 Obesity, class 1; F41.1 Generalized anxiety disorder

== ENCOUNTER → 2024-06-19 16:01 | Outpatient (BNVA) | payer BC, SELFPAY | PROVIDERS: PCP Nurse Practitioner Family; Visit Provider Nurse Practitioner Family ==

== ENCOUNTER → 2024-06-27 09:35 | Outpatient (BNVA) | payer BC, SELFPAY | PROVIDERS: PCP Nurse Practitioner Family ==

== ENCOUNTER → 2024-06-28 15:59 | Outpatient (AMB) | payer BC, SELFPAY ==
[2024-06-28 16:04] VITALS: BP 126/76; PULSE 92; O2SAT 99; BMI 35.6
--- NOTE | 2024-06-28 16:04 | MHC.OFFVIS ---
Vital Signs 06/28/24 16:04 Height 5 ft 4 in Weight 207 lb 3.752 oz BMI 35.6 BP 126/76 Blood Pressure Location Lt brachial Position Sitting Pulse 92 Pulse Source Pulse Oximeter Pulse Oximetry (%) 99 Oxygen Delivery Method Room Air Intake Visit Reasons: 3 month f/u gerd Intake Note: Relevant Flags or Indicators ? Requires Windows 7 Deployment Lead? N Odalis presents in office today for a scheduled 6 mos FUV. CC; Since last visit; labs ordered ? none. Rx ordered ? no. Diagnostics/images ordered ? recent CT Relevant GI Sx as reported per pt? Reflux ? Fecal abnormalities Discolored - freight booker yellow -- chronic issue per pt. o?? Constipation o?? Diarrhea -- Worse than constipation, however both are present. ? Abdominal Pain o?? Upper B/L ? Bloating ? Abdominal distention ? Hx of any recent surgeries? 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 Cont. with omeprazole in the morning. Patient can start taking fiber supplement after breakfast. Avoid dietary triggers. Staff to call insurance [employer] to check the status of PA for fecal calprotectin. Patient will call the insurance [employer] herself this week. I will see her in 3 months, sooner on as needed basis. Patient is agreeable to this plan and verbalizes understanding of instructions. She was given the opportunity to ask questions and all questions answered. ? Thank you for allowing me to participate in her care Medications New sucralfate 1 g PO BID 180 tabs 1RF K21.9 TODAY'S VISIT Patient is here today for follow-up. Patient reports that she continues to have epigastric pain will do okay through morning however towards the end of the day patient reports that she is having more burning. Patient feels like the reflux is not getting better. Currently takes omeprazole in the morning and sucralfate at 14:00 and at bedtime. Patient reports occasional nausea without vomiting. Patient continues to have postprandial loose stools depending on what she eats. As mentioned above on previous visits post cholecystectomy syndrome most likely related to no gallbladder. Trial of bile salts in the past, however she likes sucralfate better. Patient denies melena, hematochezia, unintentional weight loss or ribbon like stools. Patient has tried multiple food and is aware of low FODMAP diet and she is following as much as possible. 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 [facility] Medical History Depression Anxiety Eczema Overweight Head ache Dysmenorrhea IBS (irritable colon syndrome) Nausea GERD (gastroesophageal reflux disease) Irritable bowel syndrome with diarrhea Surgical History H/O colectomy Hx of cholecystectomy Hx of endoscopy Hx of colonoscopy Family History Mother Diabetes Obese Father Obese HTN (hypertension) Maternal Uncle Cancer Maternal Aunt Breast cancer Paternal Grandmother Alcohol abuse Other Substance abuse Social History Household Members: Spouse Housing: Apartment Alcohol intake: current Alcohol intake frequency: a few times a month Patient Tobacco Use Status: Never used Tobacco e-Cigarette/Vaping Use: Never Used service: No Current occupational status: employed 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 Current occupational exposures/hazards: No Sexual orientation: Straight/Heterosexual Gender identity: Female Cognitive needs: No Hearing needs: No Vision needs: No Female Reproductive History Menstrual Age of Menarche: 9 Review of Systems Const Denies weight gain and Denies weight loss ENT Reports no additional complaints, Denies dysphagia and Denies odynophagia Card Reports no additional complaints Resp Reports no additional complaints GI Reports abdominal pain (epigastric burning), Denies belching, Denies melena, Denies bloating, Denies change in bowel habits, Denies dysphagia, Denies excessive flatus, Denies dyspepsia, Reports heartburn, Denies diarrhea, Reports loose stools, Denies nausea, Denies odynophagia and Denies vomiting Reports no additional complaints Musc Reports no additional complaints Neuro Reports no additional complaints Psych Reports no additional complaints Endo Reports no additional complaints Physical Exam Vital Signs: Last Vital Signs Pulse 92 06/28/24 16:04 BP 126/76 06/28/24 16:04 Pulse Ox 99 06/28/24 16:04 Oxygen Delivery Method Room Air 06/28/24 16:04 BMI result Body Mass Index 35.6 Const General: healthy appearing and no acute distress Nutritional Appearance: obese Orientation/consciousness: patient oriented x3 Resp Effort & Inspection: normal respiratory effort, able to speak in complete sentences, no tracheal deviation and symmetric chest movement Auscultation: clear to auscultation bilaterally Cardio Rate: regular rate GI Inspection: Yes normal to inspection, No distended and Yes obesity Palpation (GI): Soft to palpation, not firm, nontender and No hepatosplenomegaly present Auscultation: normal bowel sounds General: Yes no CVA tenderness Back/Spine/Pelvis Back: no CVA tenderness Skin General skin exam: elasticity normal, turgor normal and dry skin Neuro General: patient oriented x3 Psych Appearance: grossly normal Mental Status: mental status grossly normal Assessment & Plan Assessment & Plan (1) IBS (irritable colon syndrome): Code(s): K58.9 - Irritable bowel syndrome, unspecified Category: Medical Qualifiers: Irritable bowel syndrome type: with constipation Qualified Code(s): K58.1 - Irritable bowel syndrome with constipation (2) Nausea: Code(s): R11.0 - Nausea Category: Medical (3) GERD (gastroesophageal reflux disease): Code(s): K21.9 - Gastro-esophageal reflux disease without esophagitis Category: Medical Qualifiers: Esophagitis presence: esophagitis presence not specified Qualified Code(s): K21.9 - Gastro-esophageal reflux disease without esophagitis (4) Postprandial diarrhea: Code(s): K52.9 - Noninfective gastroenteritis and colitis, unspecified (5) S/P cholecystectomy: Code(s): Z90.49 - Acquired absence of other specified parts of digestive tract Plan Patient will continue taking Citrucel to help her bulk stools. Continue low FODMAP diet. Patient will try [id number] bile salts to see if that will help her. Increase omeprazole to twice a day before breakfast and before dinner and take sucralfate at bedtime only. Continue avoiding dietary triggers and late night snacking. Staying upright for minimum 3 hours after meals discussed with patient. Patient reports to have busy next few months and is requesting to have her appointment during spring. Patient will call our office if she will have any GI concerning symptoms. She is agreeable to this plan and verbalizes understanding of instructions. She was given the opportunity to ask questions and all questions answered. Thank you for allowing me to participate in her care Medications: Changed From omeprazole 20 mg PO DAILY 30 caps 0RF K21.9 - Gastro-esophageal reflux disease without esophagitis To omeprazole 20 mg PO BID 60 caps 1RF K21.9 - Gastro-esophageal reflux disease without esophagitis Coding Level of Care Code Est Pt Level 4 (81748) Diagnoses Irritable bowel syndrome with constipation K58.1 Irritable bowel syndrome type: with constipation Nausea R11.0 Gastroesophageal reflux disease, unspecified whether esophagitis present K21.9 Esophagitis presence: esophagitis presence not specified Postprandial diarrhea K52.9 S/P cholecystectomy Z90.49 Time Spent (min) 40 Comment 25 minutes spent with patient and additional 15 minutes spent reviewing her records
== END ==
PROVIDERS: PCP Family Medicine; Visit Provider Nurse Practitioner Family
DX: K58.1 Irritable bowel syndrome with constipation (principal); R11.0 Nausea; K21.9 Gastro-esophageal reflux disease without esophagitis; Z90.49 Acquired absence of other specified parts of digestive tract
CPT/HCPCS: 99214

== ENCOUNTER → 2024-06-28 15:59 | Outpatient (BNVA) | payer BC, SELFPAY | PROVIDERS: PCP Family Medicine; Visit Provider Nurse Practitioner Family ==

== ENCOUNTER 2024-08-16 15:43 | Outpatient (AMB) | payer BC, SELFPAY ==
--- NOTE | 2024-08-16 15:47 | A.OFFVIS_ITS ---
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 Doing well with concerns. Currently is sexually active. Partner is sterile due to cancer. Continuous dosing due to HMB and cramping, prefers not to bleed. She denies vaginal itching and irritation. She is interested in switching to the Mirena IUD. STI screening offered for IUD preparation; she accepts. She denies any contraindications to control such as: migraines with aura, history of DVT or pulmonary emboli, high blood pressure, liver disease, thrombolic disorders, Lupus, +RAMSEY, breast cancer, or smoking. Continue with the OCPs for now. She tries to eat healthy and stays active with exercise. Denies family history of ovarian or colon cancer. Family history of breast cancer Last pap smear 2021, negative. [facility] Medical History Depression Anxiety Eczema Overweight Head ache Dysmenorrhea IBS (irritable colon syndrome) Nausea GERD (gastroesophageal reflux disease) Irritable bowel syndrome with diarrhea Surgical History H/O colectomy Hx of cholecystectomy Hx of endoscopy Hx of colonoscopy Family History Mother Diabetes Obese Father Obese HTN (hypertension) Maternal Uncle Cancer Maternal Aunt Breast cancer Paternal Grandmother Alcohol abuse Other Substance abuse Social History Household Members: Spouse Housing: Apartment Alcohol intake: current Alcohol intake frequency: a few times a month Patient Tobacco Use Status: Never used Tobacco e-Cigarette/Vaping Use: Never Used service: No Current occupational status: employed 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 Current occupational exposures/hazards: No Sexual orientation: Straight/Heterosexual Gender identity: Female Cognitive needs: No Hearing needs: No Vision needs: No Female Reproductive History Menstrual Age of Menarche: 9 Duration of menses: 8-10 days Date of last menstrual period: 07/26/24 control method: pills Total pregnancies: 0 Date of last pap smear: 12/23/21 (neg) Review of Systems Const All systems reviewed & are unremarkable except as noted in HPI and below Reports as per HPI Eyes Reports no additional complaints ENT Reports no additional complaints Card Reports no additional complaints Resp Reports no additional complaints GI Reports as per HPI and Reports no additional complaints Reports as per HPI Musc Reports no additional complaints Skin/Breast Reports as per HPI Neuro Reports no additional complaints Psych Reports no additional complaints Endo Reports no additional complaints Mike/Lymph Reports no additional complaints Aller/Immun Reports no additional complaints Physical Exam Vital Signs: BMI result Body Mass Index 35.5 Const General: cooperative, healthy appearing, no acute distress, well developed and alert Orientation/consciousness: patient oriented x3 HEENT Head: Yes normal to inspection Eyes General: appearance normal, both eyes and all related structures Neck Neck: Yes normal visual inspection Thyroid: Thyroid normal Chest Chest palpation & inspection: normal inspection of the chest and other (no puckering, dimpling, peau de orange, retraction, discharge, masses) Breast/axilla inspection: normal inspection of the breasts Breast/axilla palpation: normal palpation of the breasts Resp Effort & Inspection: normal respiratory effort GI Inspection: Yes normal to inspection Palpation (GI): Soft to palpation Rectal Exam - Female: deferred General: Yes bladder normal to palpation External Female Exam: normal external appearance and normal appearance of the urethra Speculum Exam - Vagina: normal appearance of the vagina, normal palpation and normal vaginal discharge Speculum Exam - Cervix: normal appearance of the cervix, normal palpation and Other cervical findings present (Ectopy) Bimanual exam- vagina & uterus: normal bimanual exam, normal palpation, uterine size normal, bladder normal to palpation, normal palpation and non-tender Bimanual Exam- Adnexa, other: no masses Skin General skin exam: no rashes or lesions noted Rashes: no rashes Neuro General: patient oriented x3 Cognition (Neuro): normal cognition Extrem General: Yes normal to inspection Psych Attitude: cooperative Thought process: Normal thought process present Assessment & Plan Assessment & Plan (1) Encounter for annual routine gynecological examination: Code(s): Z01.419 - Encounter for gynecological examination (general) (routine) without abnormal findings Category: Medical Plan Discussed: Current recommendations for pap smears per ASCCP guidelines. Breast awareness and periodic breast exams. Maintain a healthy lifestyle including a well balanced diet and routine exercise. control hormone use warnings: go to ER if and loss of vision, blindness, severe headache, chest pain or difficulty breathing, severe abdominal pain, or any pain or swelling in an extremity. BV panel and GC chlamydia obtained. Schedule Mirena IUD insert, counseled regarding pre insertion planning to take ibuprofen or Tylenol with food or fluids 1 hour before insertion time. Mirena booklet dispensed. Reviewed use, warnings and side effects, risks and benefits. Patient verbalizes understanding and agrees to the plan of care. She was given opportunity to ask questions and all questions were answered to the best of my ability. 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 This note is constructed using voice recognition software. While every effort has been made to ensure accuracy, farmworker pullet farm errors may have been included. Orders: Orders CT NG by PCR Today Z20.2 - Contact with and (suspected) exposure to infections with a predominantly sexual mode of transmission Bacterial Vaginosis Panel Today Z20.2 - Contact with and (suspected) exposure to infections with a predominantly sexual mode of transmission Medications: Refilled desog-e.estradiol/e.estradiol 0.15-0.02 mgx21 /0.01 mg x 5 (Homer (28)) skip placebo week, take the pill daily-continuous daily dosing 1 tab PO DAILY 84 tabs 4RF Coding Level of Care Code Est Pt Prev Care 18-39y(77585) Diagnoses Encounter for annual routine gynecological examination Z01.419
[2024-08-16 15:50] VITALS: BP 120/80; BMI 35.5
== END 2024-08-16 16:18 | disposition home or self-care (01) ==
LOC: HO.HWS 15:43
PROVIDERS: PCP Nurse Practitioner Family; Visit Provider Advanced Practice Midwife
DX: Z01.419 Encounter for gynecological examination (general) (routine) without abnormal findings (principal)
CPT/HCPCS: 99395

== ENCOUNTER 2024-08-16 15:43 | Outpatient (REF) | payer BC, SELFPAY ==
[2024-08-17 02:33] LABS: CT PCR NOT DETECTED (Not Detect.); NG PCR NOT DETECTED (Not Detect.)
[2024-08-17 08:58] LABS: Bacterial Vaginosis PCR NEGATIVE (Negative); Candida Group PCR NOT DETECTED (Not Detect); Candida glab krusei PCR NOT DETECTED (Not Detect); Trichomonas vaginalis PCR NOT DETECTED (Not Detect)
== END 2024-08-16 15:44 | disposition home or self-care (01) ==
LOC: HO.LNP 15:43
PROVIDERS: PCP Nurse Practitioner Family; Visit Provider Advanced Practice Midwife
DX: Z20.2 Contact with and (suspected) exposure to infections with a predominantly sexual mode of transmission (principal)
CPT/HCPCS: 0352U; 87491; 87591

== ENCOUNTER 2024-08-16 16:14 | Outpatient (REF) | payer BC, SELFPAY | END 2024-08-16 16:15 | disposition home or self-care (01) | LOC: HO.LAB 16:14 | PROVIDERS: Visit Provider Advanced Practice Midwife | DX: Z13.89 Encounter for screening for other disorder (principal) ==

== ENCOUNTER 2025-02-23 09:44 | Outpatient (AMB) | payer BC, SELFPAY ==
--- NOTE | 2025-02-23 09:45 | MHC.PC.OV ---
Vital Signs 02/23/25 09:52 02/23/25 10:27 Height 5 ft 4 in Weight 209 lb BMI 35.9 BP 128/88 Blood Pressure Location Rt brachial Position Sitting Respiration 15 Pulse 104 H 90 Pulse Source Pulse Oximeter Auscultation Temp 97.7 F Temp Source Temporal Artery Scan Pulse Oximetry (%) 98 Oxygen Delivery Method Room Air Intake Visit Reasons: discuss weight loss. Intake Note: Odalis presents in the office today to discuss weight loss. Allergies bupropion (From Wellbutrin) Adverse Reaction (Intermediate, Verified 02/23/25 10:15) Nausea Medication List - Last Reconciled 02/23/25 by Disha Mercado, [facility]- desog-e.estradiol/e.estradiol 0.15-0.02 mgx21 /0.01 mg x 5 (Pimtrea (28)) 1 tab PO DAILY famotidine 20 mg PO BEDTIME loperamide (Imodium A-D) 2 mg PO Q6H PRN multivitamin 1 tab PO DAILY omeprazole 20 mg PO ONCE propranolol 10 mg PO BID PRN sucralfate 1 g PO BID trazodone 25 mg (1/2 x 50 mg) PO DAILY PRN 90 days Tobacco use date assessed: 02/23/25 Dental Screening Dental Screen Date: 02/23/25 Did you have a dental visit in the last 12 months?: Yes Did you have a dental problem in the last 6 months where you did not have access to dental care?: No Was dental information given to patient?: Patient has dentist HPI HPI Comments History of Present Illness Details Afia 24 y/o F chronic GERD, LONNIE with panic, MDD, obesity, eczema, restrictive eating disorder Specialists: Psychiatry/Counseling [facility] History of Present Illness - The patient is a 24-year-old female presenting with weight management and eczema. - Weight management: Family history of obesity, previous restricting calories to 800/day persistent hunger issues. - Tried wellbutrin, had side effects. Open to medications. - Eczema: Dry, cracked hands unresponsive to treatment, seeking dermatology care. Rigoberto Murrell. - Sinusitis: Recovering from second infection this year. Feeling better. - Depression and Anxiety: Mild symptoms managed with psychiatric care. - Preventative care: Would like skin cancer screening. - Noted to be tachycardic. Denies sx. Monitors on watch. VS trending reviewed with her today 90-134bpm 2020-now - Will be having wisdom teeth taken out in March 2025 Review of Systems - General: Reports feeling stressed, denies alcohol, tobacco, or drug use. - Dermatological: Reports dry, cracked hands, denies improvement with triamcinolone. - Respiratory: Reports recovering from sinus infection. - Cardiovascular: Denies palpitations, reports occasional elevated heart rate. - Psychological: Reports mild depression and anxiety, managed with therapy and psychiatry. Exam Awake alert oriented, no acute distress Mildly tachycardic, regular rhythm Lung sounds clear to auscultation bilat No edema BLE Mood and affect appropriate Fair skin, eczematous rash R palm Discussion Notes During the visit, we discussed weight management options, including a referral to a nonsurgical weight management program at [facility]. This program offers medication management, nutrition therapy, and possibly psychological support. We also addressed the patient's eczema, with a referral to [facility] for further evaluation and management. Additionally, we reviewed the patient's mild depression and anxiety, which are currently managed with psychiatric care and therapy. Preventative care measures, including a skin cancer screening, were also discussed and planned. Assessment and Plan 1. Weight management - Referral to [facility] for program including medication and nutrition therapy. 2. Eczema - Referral to [facility] for evaluation and management. 3. Sinusitis - Recovering from recent infection, 4. Depression and Anxiety - Continue psychiatric care and therapy. 5. Preventative care - Scheduled skin cancer screening. 6. Tachycardia - recommend holter - she wants to review her OOP cost first; asked she find out and send me info on portal. Patient Instructions - Follow up with [facility] for weight management program. - Schedule appointment with [facility] for eczema evaluation. - Continue current psychiatric care and therapy for depression and anxiety. - Attend scheduled skin cancer screening. - Find out about Holter RTO as scheduled for CPE, sooner PRN Consent Patient was informed and verbally consented to the use of an ambient scribe for clinic note documentation during this visit. Total time spent caring for the patient today was 40 minutes. This includes time spent before the visit reviewing the chart, time spent during the visit, and time spent after the visit on documentation, reviewing laboratory results, diagnostic imaging, medications, performing a medically necessary evaluation, counseling on diagnoses, care coordination, ordering appropriate tests, ordering appropriate medications, review of tests performed by other providers, reporting test results with the patient, communication with other healthcare providers. [facility] Medical History Depression Anxiety Eczema Overweight Head ache Dysmenorrhea IBS (irritable colon syndrome) Nausea GERD (gastroesophageal reflux disease) Irritable bowel syndrome with diarrhea Surgical History H/O colectomy Hx of cholecystectomy Hx of endoscopy Hx of colonoscopy Family History Mother Diabetes Obese Father Obese HTN (hypertension) Maternal Uncle Cancer Maternal Aunt Breast cancer Paternal Grandmother Alcohol abuse Other Substance abuse Social History (Updated 02/23/25 @ 09:52 by Phylicia Hodge MA) Household Members: Spouse Housing: Apartment Alcohol intake: never Patient Tobacco Use Status: Never used Tobacco e-Cigarette/Vaping Use: Never Used Use of substances other than those prescribed or required for medical reasons: No service: No Current occupational status: employed 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 1. Little interest or pleasure in doing things: not at all 2. Feeling down, depressed, or hopeless: several days 3. Trouble falling or staying asleep, or sleeping too much: not at all 4. Feeling tired or having little energy: several days 5. Poor appetite or overeating: several days 6. Feeling bad about yourself - or that you are a failure or have let yourself or your family down: not at all 7. Trouble concentrating on things, such as reading the newspaper or watching television: not at all 8. Moving or speaking so slowly that other people could have noticed. Or the opposite - being so fidgety or restless that you have been moving around a lot more than usual: not at all 9. Thoughts that you would be better off or of hurting yourself in some way: not at all Total score: 3 Depression Screening Interpretation: Negative Depression Screening Done: Yes 01740 - PHQ-9 Billing: Yes Source: Developed by Drs. Ivan Mckeon, Guillermina Zapien, Ramos Ng and colleagues, with an educational radha from [employer]. Thrive Questionnaire Date Thrive assessed: 02/16/25 I am a: Patient What is your living situation today?: I have a steady place to live Within the past 12 months, did the food you bought not last and you didn't have the money to get more?: Never true Within the past 12 months, did you worry whether your food would run out before you got money to buy more?: Never true Do you have trouble paying for medicines?: No Do you have trouble getting transportation to medical appointments?: No Do you have trouble paying your heating and electricity bill?: No Do you have trouble taking care of your child, family member or friend?: No Do you have trouble with day-to-day activities such as bathing, preparing meals, shopping, managing finances, etc.?: No Are you currently unemployed and looking for a job?: No Are you interested in more education?: No Please select the resources that you would like help with: None Currently or been in a relationship where the following occur: No concerns reported THRIVE Score: 0 AUDIT C Alcohol Use Questionnaire (AUDIT-C) 1. How often do you have a drink containing alcohol?: Never 3. How often do you have six or more drinks on one occasion?: Never Total Score: 0 Score Reviewed/Action Taken: Yes LONNIE-7 AMB Questionnaire LONNIE-7 Date LONNIE - 7 assessed: 02/23/25 Feeling nervous, anxious, or on edge: 1 = Several days Not being able to stop or control worryin = Not at all Worrying too much about different things: 1 = Several days Trouble relaxin = Several days Being so restless that it is hard to sit still: 0 = Not at all Becoming easily annoyed or irritable: 1 = Several days Feeling afraid as if something awful might happen: 0 = Not at all Total LONNIE-7 score (0-4 normal; 5-9 mild; 10-14 moderate; 15-21 severe): 4 Source: Developed by Drs. Ivan Mckeon, Guillermina Zapien, Ramos gN and colleagues, with an educational radha from [employer]. LONNIE-7 Assessment Billing LONNIE-7 Assessment Tool: LONNIE-7 Assessment 02228 Physical exam (Primary Care) Vital Signs: Last Vital Signs Temp 97.7 F 02/23/25 09:52 Pulse 104 H 02/23/25 09:52 Resp 15 02/23/25 09:52 BP 128/88 02/23/25 09:52 Pulse Ox 98 02/23/25 09:52 Oxygen Delivery Method Room Air 02/23/25 09:52 BMI result Body Mass Index 35.9 BMI Assessment/Plan discussion: High BMI High, discussed plan: lifestyle Tobacco/Smoking Status: Tobacco use Status Tobacco use date assessed 02/23/25 02/23/25 09:56 Patient Tobacco Use Status Never used Tobacco 02/23/25 09:52 e-Cigarette/Vaping Use Never Used 02/23/25 09:52 PHQ-9: PHQ-9 Score PHQ-9: Total score 3 02/23/25 09:46 Depression Screening Interpretation: Negative Thrive Assessment: Date of Thrive Assessment Date Thrive assessed 02/16/25 02/23/25 09:46 Currently or been in a relationship where the following occur: No concerns reported Coding Level of Care Code Est Pt Level 5 (37329) Complex EM visit Add On G2211 Diagnoses Other eczema L30.8 Eczema type: other Skin cancer screening Z12.83 Obesity (BMI 30-39.9) E66.9 LONNIE (generalized anxiety disorder) F41.1 Moderate episode of recurrent major depressive disorder F33.1 Major depression episode severity: moderate Tachycardia R00.0 Additional Codes PHQ-9 - 77496 - PHQ-9 Billing: Yes ([id number]) LONNIE-7 Assessment Billing - LONNIE-7 Assessment Tool: LONNIE-7 Assessment 29312 ([id number]) Assessment & Plan Assessment & Plan (1) Eczema: Code(s): L30.9 - Dermatitis, unspecified Category: Medical Qualifiers: Eczema type: other Qualified Code(s): L30.8 - Other specified dermatitis (2) Skin cancer screening: Code(s): Z12.83 - Encounter for screening for malignant neoplasm of skin Category: Medical (3) Obesity (BMI 30-39.9): Code(s): E66.9 - Obesity, unspecified Category: Medical (4) LONNIE (generalized anxiety disorder): Code(s): F41.1 - Generalized anxiety disorder Category: Medical (5) MDD (major depressive disorder), recurrent episode: Code(s): F33.9 - Major depressive disorder, recurrent, unspecified Category: Medical Qualifiers: Major depression episode severity: moderate Qualified Code(s): F33.1 - Major depressive disorder, recurrent, moderate (6) Tachycardia: Code(s): R00.0 - Tachycardia, unspecified Category: Medical Plan . Orders: Referrals Medical Weight Management Referral MALINA PateWILLIAM E66.9 - Obesity, unspecified Dermatology Referral MARLA Pate L30.9 - Dermatitis, unspecified, Z12.83 - Encounter for screening for malignant neoplasm of skin Medications: Changed From omeprazole 20 mg PO BID 60 caps 1RF K21.9 - Gastro-esophageal reflux disease without esophagitis To omeprazole 20 mg PO ONCE K21.9 - Gastro-esophageal reflux disease without esophagitis [facility] Discontinued triamcinolone acetonide 0.025% Apply to areas as needed Discontinued Reason: Patient no longer taking 1 appl topical BID PRN 60 mL 0RF eczema
[2025-02-23 09:52] VITALS: BP 128/88; PULSE 104; RESP 15; TEMP 36.5; O2SAT 98; BMI 35.9
--- OUTSIDE RECORDS SUMMARY | 2025-02-23 09:54 | XMS_ITS | Clinical Summary ---
Author Organization [facility]'s Address [address] [place] [id number] Phone Care Team Providers Care Building Architect Name Role Phone Krissy Guzman MD Primary Care Provider [phone] Allergies No known active allergies Medications dicyclomine 10 MG capsule Take 20 mg by mouth 3 (three) times a day. Active famotidine 20 MG tablet Take 20 mg by mouth every morning. 4 02/18/2019 Active sucralfate 1 g tablet TAKE 3 TABLETS EVERY DAY AT 11AM 3 02/21/2019 Active nortriptyline 10 MG capsule Take 10 mg by mouth nightly. 4 02/18/2019 Active Active Problems Problem Noted Date Diagnosed Date Irritable bowel syndrome wit h both constipation and diarrhea 10/06/2018 Overview (10/06/2018): Saw Dr Beyer at [facility]- Is on carafate and Dicyclomine. Esophageal reflux 10/15/2017 Overview (10/06/2018): GERD (530.81) Onset: 10/15/2017 Added by: Sushma Benitez GI at [facility]- Dr Beyer- is on famotidine History of exposure to hazardous substance 02/03 Overview (10/06/2018): environmental exposure to tobacco (V87) Onset: 02/03/2017 Added by: Carmen Champagne Immunizations Immunization Administration Dates Next Due DTaP 5 05/01/2003, 0,1998,08/29,1998 HPV Vaccine 9 Valent 02/03/2017,03/26/2016,12/16 Hep A, ped/adol 04/03/2014,09/19/2013 Hep B, ped/adol 1998,1998,1998 Hib (PRP-T) 07/21/1999, 9,1998,06/25 IPV 05/01/2003, 2,1998,06/25 Influenza, injectable, quadrivalent 02/03/2017 MMR 05/01/2003,07/21/1999,04/03/1999 Meningococcal B Trumenba 09/14/2017,02/03/2017 Meningococcal Conj (Menactra) MCV4P 12/17/2015,1 10/27/2008 Td (adult) (MBL), 2 Lf tetan us toxoid, PF, adsorbed 03/02/2019 Tdap 08/26/2009 Varicella 06/17/2007,07/21/1999 Social History Tobacco Use Types Packs/Day Years Used Date Smoking Tobacco: Passive Smo ke Exposure - Never Smoker Smokeless Tobacco: Never Comments:Never Smoker Comments Unknown Sex and Gender Information Value Date Recorded Sex Assigned at Not on file Legal Sex Female 6:33 PM EDT Gender Identity Not on file Sexual Orientation Not on file Last Filed Vital Signs Vital Sign Reading Time Taken Comments Blood Pressure 118/80 03/04/2019 11:01 AM EDT Pulse 96 03/04/2019 11:01 AM EDT Temperature 36.5 C (97.7 F) 03/02/2019 4:54 PM EDT Respiratory Rate - - Oxygen Saturation 99% 03/04/2019 11:01 AM EDT Inhaled Oxygen Concentration - - Weight 66.2 kg (146 lb) 03/04/2019 11:01 AM EDT Height 164.5 cm (5' 4.75 ) 03/04/2019 11:01 AM E DT Body Mass Index 24.48 03/04/2019 11:01 AM EDT Plan of Treatment Health Maintenance Due Date Last Done Comments Influenza Vaccines (#1) 2024 02/03/2017 COVID-19 Vaccine ( season) 2024 DTaP,Tdap,and Td Vaccines (8 - Td or Tdap) 03/02/2029 03/02/2019, 08/26/2009, 05/01/2003, Additional history exists Hepatitis B Vaccines Completed 1998, 1998, 1998 HIB Vaccines Completed 07/21/1999, 10/1998, 1998, Additional history exists IPV Vaccines Completed 05/01/2003, 04/07, 1998, Additional history exists MMR Vaccines Completed 05/01/2003, 07/07, 04/03/1999 Varicella Vaccines Completed 06/17/2007, 07/21/1999 Hepatitis A Vaccines Completed 04/03/2014, 09/19/19 14 Meningococcal Vaccine Completed 12/17/2015, 009 HPV Vaccines Completed 02/03/2017, 03/07, 12/17/2015 Men B Vaccine Completed 09/14/2017, 02/03/2017 Pneumococcal Vaccine Aged Out No long er eligible based on patient's age to complete this topic Insurance [facility] Care Teams Building Architect Relationship Specialty Start Date End Date Krissy Guzman MD [address] [place] [id number] PCP - General 01/12/18
[2025-02-23 10:27] VITALS: PULSE 90
== END 2025-02-23 10:31 | disposition home or self-care (01) ==
LOC: HO.HMCFM 09:45
PROVIDERS: PCP Nurse Practitioner Family; Visit Provider Nurse Practitioner Family
DX: L30.8 Other specified dermatitis (principal); F33.1 Major depressive disorder, recurrent, moderate; E66.9 Obesity, unspecified; Z68.35 Body mass index [BMI] 35.0-35.9, adult; Z12.83 Encounter for screening for malignant neoplasm of skin; F41.1 Generalized anxiety disorder; R00.0 Tachycardia, unspecified

== ENCOUNTER → 2025-02-23 09:44 | Outpatient (BNVA) | payer BC, SELFPAY | PROVIDERS: PCP Nurse Practitioner Family; Visit Provider Nurse Practitioner Family | DX: L30.8 Other specified dermatitis (principal); E66.9 Obesity, unspecified; Z68.35 Body mass index [BMI] 35.0-35.9, adult; F41.1 Generalized anxiety disorder; F33.1 Major depressive disorder, recurrent, moderate; R00.0 Tachycardia, unspecified; K21.9 Gastro-esophageal reflux disease without esophagitis; Z79.899 Other long term (current) drug therapy; Z13.31 Encounter for screening for depression; Z13.30 Encounter for screening examination for mental health and behavioral disorders, unspecified | CPT/HCPCS: 96127 ==

== ENCOUNTER 2025-02-28 13:11 | Outpatient (AMB) | payer BC, SELFPAY ==
[2025-02-28 13:14] VITALS: BP 110/78; BMI 35.9
--- NOTE | 2025-02-28 13:14 | A.OFFVIS_ITS ---
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 Current OCP year user. [facility] Medical History (Updated 02/28/25 @ 13:56 by Beth Frankel CNM) IUD (intrauterine device) in place Depression Anxiety Eczema Overweight Head ache Dysmenorrhea IBS (irritable colon syndrome) Nausea GERD (gastroesophageal reflux disease) Irritable bowel syndrome with diarrhea Surgical History H/O colectomy Hx of cholecystectomy Hx of endoscopy Hx of colonoscopy Family History Mother Diabetes Obese Father Obese HTN (hypertension) Maternal Uncle Cancer Maternal Aunt Breast cancer Paternal Grandmother Alcohol abuse Other Substance abuse Social History Household Members: Spouse Housing: Apartment Alcohol intake: never Patient Tobacco Use Status: Never used Tobacco e-Cigarette/Vaping Use: Never Used service: No Current occupational status: employed 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 Current occupational exposures/hazards: No Sexual orientation: Straight/Heterosexual Gender identity: Female Cognitive needs: No Hearing needs: No Vision needs: No Female Reproductive History Menstrual Age of Menarche: 9 Date of last menstrual period: 12/18/24 Review of Systems Const All systems reviewed & are unremarkable except as noted in HPI and below Physical Exam Vital Signs: Last Vital Signs BP 110/78 02/28/25 13:14 BMI result Body Mass Index 35.9 Const General: cooperative, healthy appearing and no acute distress Orientation/consciousness: patient oriented x3 GI Inspection: Yes normal to inspection Palpation (GI): Soft to palpation and Other GI palpation findings present (Nontender) Rectal Exam - Female: visual inspection normal General: Yes bladder normal to palpation External Female Exam: normal appearance of the urethra Speculum Exam - Vagina: normal appearance of the vagina, normal palpation and normal vaginal discharge Speculum Exam - Cervix: normal appearance of the cervix and normal palpation Bimanual exam- vagina & uterus: normal bimanual exam, normal palpation, uterine size normal, bladder normal to palpation, normal palpation, uterine shape normal and non-tender Bimanual Exam- Adnexa, other: normal adnexae Neuro General: patient oriented x3 Office Procedures IUD Insert/Removal Details 24228-RDS Insertion Procedure code (CPT) selection complete IUD Insert/Removal Details Details: The patient is here today for a Mirena IUD insertion. She was counseled on the side effects including: menstrual cycle changes, pain, infection, bleeding, or expulsion. Risks of injury to the vagina, cervix, uterus, tubes, ovaries, bowel, bladder, and any adjacent tissue, resulting in nerve damage, scarring, and pain. Risks complications for the procedure that may require other test including ultrasounds, Xray, CT or MRI scan, surgery, anesthesia, blood transfusion. A urine test was completed and was negative. She was consented for the IUD insertion and has signed the consent form. All questions were answered. IUD Insertion: The patient was placed in the dorsal lithotomy position and a sterile speculum was inserted. The procedure was completed under aseptic technique. The cervix and vagina were cleansed with a Betadine solution x 3 swabs. A single toothed tenaculum was applied to the cervix for stabilization, and the uterus was sounded to 7cm. The device was inserted and released with a gentle motion. Bleeding from the tenaculum sites and the procedure were minimal. The strings were trimmed to 3cm. All of the equipment was removed and the bimanual was normal, no tip was palpable at the cervical os. The patient tolerated the procedure well and left the office in good condition. Post IUD Insertion Care: There may be some post insertion bleeding for several days that is usually light and can turn to a light brown or pink in color. Mild cramping may occur. Nothing in the vagina including: tampons, douching or intimacy for several days. You may take an over the counter mild analgesia like Tylenol or Advil (if no allergies), per the manufacturers recommendations on dosing and frequency. Follow the directions completely. Call the office if any: fever (over 100.4), flu like symptoms, abdominal pain, worsening cramping not resolved with over the counter medications, foul smelling vaginal odor, signs of infected appearing discharge, or heavy bleeding. Use a condom for a back up method if indicated for 7 days. Always use a condom for STI prevention; IUD's are not protective against STD's. Return to the office in 4-6 weeks for IUD recheck. This note is constructed using voice recognition software. While every effort has been made to ensure accuracy, hoop punch operator helper errors may have been included. [id number]-ZKB Insertion Procedure code (CPT) selection complete Office Meds Mirena 21 mcg/24 hr (up to 8 years) 52 mg intrauterine device Performing Provider: Beth Frankel CNM Performing Location: [facility] [facility] Administered by: BRIAN Fuentes on 02/28/25 15:30 Dose Route Admin Location Dispensed Lot Number Expiration Date [facility] Local Company [employer] 1 device intrauterine 1 device [id number] 03/05/27 [id number] [facility] Total Dispensed Waste 1 device 0 % Results AMB Test Urine AMB Test Urine Negative Last Edit by BRIAN Fuentes on 02/28/25 13:26 Results Reviewed Results Reviewed: Laboratory Last Values Tst Clinic Negative 02/28/25 13:26 Assessment & Plan Assessment & Plan (1) Encounter for IUD insertion: Code(s): Z30.430 - Encounter for insertion of intrauterine contraceptive device Plan See procedure notes. This note is constructed using voice recognition software. While every effort has been made to ensure accuracy, hoop punch operator helper errors may have been included. Orders: Orders AMB HCG Urine Test Today Z32.02 - Encounter for test, result negative CT NG by PCR Vag/Cerv Today Z20.2 - Contact with and (suspected) exposure to infections with a predominantly sexual mode of transmission AMB IUD Insertion/Removal - Practice Supplied Today Z30.430 - Encounter for insertion of intrauterine contraceptive device Medications: Discontinued desog-e.estradiol/e.estradiol 0.15-0.02 mgx21 /0.01 mg x 5 (Pimtrea (28)) skip placebo week, take the pill daily-continuous daily dosing Discontinued Reason: Order 1 tab PO DAILY 84 tabs 4RF Coding Level of Care Code Procedure Only Diagnoses Encounter for IUD insertion Z30.430 CPT Codes Details - CPT: 32532-WVZ Insertion ([id number]) Details - CPT: 78820-BRA Insertion ([id number])
--- OUTSIDE RECORDS SUMMARY | 2025-02-28 15:23 | XMS_ITS | Clinical Summary ---
Author Organization [employer] Address [address] [facility] [address] [place] [address] Care Team Providers Care Motorcycle Builder Name Role Phone AmandeepFiona Unavailable Unavailable Social History Tobacco Use Types Packs/Day Years Used Date Smoking Tobacco: Never Assessed Comments Unknown Sex and Gender Information Value Date Recorded Sex Assigned at Female 05/05/2023 10:31 AM EDT Legal Sex Female 10:03 AM EDT Gender Identity Female 05/05/2023 10:31 AM EDT Sexual Orientation Straight 05/05/2023 10 :31 AM EDT Plan of Treatment Health Maintenance Due Date Last Done Comments Depression Screening 1998 Disability Screening 1998 Alcohol/Substance Use Screening 2010 Tobacco Screening 2010 Family Planning (PISQ) 2013 HPV Vaccines (1 - 3-dose series) 2013 DTaP/Tdap/Td Vaccines (1 - Tdap) 2017 Hepatitis B Vaccines (1 of 3 - 19+ 3-dose series) 2017 Pap Smear 2019 COVID-19 Vaccine ( - 2023-2 5 season) 2024 Influenza Vaccine (Season Ended) 2025 Zoster Vaccines (1 of 2) 2048 RSV Patients and Pa tients Aged 60 years or older (1 - 1-dose 75+ series) 2073 HIB Vaccines Aged Out No longer eligi ble based on patient's age to complete this topic Hepatitis A Vaccines Aged Out No long er eligible based on patient's age to complete this topic IPV Vaccines Aged Out No longer eligi ble based on patient's age to complete this topic Meningococcal B Vaccine Aged Out No l onger eligible based on patient's age to complete this topic Meningococcal Vaccine Aged Out No yuliana giselle eligible based on patient's age to complete this topic Pneumococcal Vaccine: Pediat rics (0 to 5 Years) and At-Risk Patients (6 to 49) Years Aged Out No longer eligible b ased on patient's age to complete this topic RSV under 20 months Aged Out No longe r eligible based on patient's age to complete this topic Rotavirus Vaccines Aged Out No longer eligible based on patient's age to complete this topic Care Teams Motorcycle Builder Relationship Specialty Start Date End Date Fiona Bernstein [facility] 05/05/23
== END 2025-02-28 14:46 | disposition home or self-care (01) ==
LOC: HO.HWS 13:11
PROVIDERS: PCP Nurse Practitioner Family; Visit Provider Advanced Practice Midwife
DX: Z32.02 Encounter for pregnancy test, result negative (principal); Z30.430 Encounter for insertion of intrauterine contraceptive device
CPT/HCPCS: 58300

== ENCOUNTER 2025-02-28 13:11 | Outpatient (REF) | payer BC, SELFPAY ==
[2025-02-28 16:41] LABS: CT PCR NOT DETECTED (Not Detect.); NG PCR NOT DETECTED (Not Detect.)
== END 2025-02-28 13:12 | disposition home or self-care (01) ==
LOC: HO.LNP 13:11
PROVIDERS: PCP Nurse Practitioner Family; Visit Provider Advanced Practice Midwife
DX: Z30.430 Encounter for insertion of intrauterine contraceptive device (principal); Z20.2 Contact with and (suspected) exposure to infections with a predominantly sexual mode of transmission; Z32.02 Encounter for pregnancy test, result negative
CPT/HCPCS: 58300; 81025; 87491; 87591; J7298

== ENCOUNTER 2025-04-03 09:17 | Outpatient (AMB) | payer BC, SELFPAY ==
--- NOTE | 2025-04-03 09:21 | MHC.PC.OV ---
Vital Signs 04/03/25 09:24 04/03/25 09:50 Height 5 ft 4 in Weight 217 lb 4 oz BMI 37.3 BP 122/70 120/64 Blood Pressure Location Lt brachial Rt brachial Position Sitting Sitting Respiration 12 Pulse 102 H 99 Pulse Source Pulse Oximeter Pulse Oximeter Temp 97.2 F Temp Source Oral Pulse Oximetry (%) 99 Oxygen Delivery Method Room Air Intake Visit Reasons: 1 year CPE Intake Note: CPE Physician Obstetrician Required: No Allergies bupropion (From Wellbutrin) Adverse Reaction (Intermediate, Verified 04/03/25 09:29) Nausea Medication List - Last Reconciled 04/03/25 by Disha Mercado, AUDIT REVIEWER- famotidine 20 mg PO BEDTIME loperamide (Imodium A-D) 2 mg PO Q6H PRN multivitamin 1 tab PO DAILY omeprazole 20 mg PO ONCE propranolol 10 mg PO BID PRN sucralfate 1 g PO BID trazodone 25 mg (1/2 x 50 mg) PO DAILY PRN 90 days Tobacco use date assessed: 04/03/25 Dental Screening Dental Screen Date: 04/03/25 Did you have a dental visit in the last 12 months?: Yes Did you have a dental problem in the last 6 months where you did not have access to dental care?: No Was dental information given to patient?: Patient has dentist HPI HPI Comments History of Present Illness Details Afia 24 y/o F chronic GERD, LONNIE with panic, MDD, obesity, eczema, restrictive eating disorder s/p lap sanjuana 2017, left index finger repair in childhood [with hardware], wisdom teeth extraction 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 - Chronic GERD managed with famotidine, Carafate, and omeprazole - Generalized anxiety disorder managed with propranolol; insomnia treated with trazodone. Active w outside prescriber and counselor; will discuss starting meds for anxiety; uptick in sx at start of the school year. - cont. with tacycardia insurance will cover holter; due to teaching, needs to be done before end of april - experiences chronic transverse upper abd Cramping; intermittent, present for year. . - Recently had wisdom teeth extracted. 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 - Family status: In a long-term relationship of five years, not . 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 - Diet/Nutrition: Restricted dietary intake due to GERD, recent issues with weight management and elimination diet limitations. - Dietary challenges include intolerance to apples and leafy greens. - Exercise: Recently resumed post-dental surgery. Review of Systems - Cardiovascular: Reports intermittent elevated pulse rate. - Gastrointestinal: Reports chronic GERD symptoms. - Musculoskeletal: Denies pain. - Neurological: Denies persistent symptoms. - Psychiatric: Reports anxiety and insomnia. - General: Reports overall good health. - Respiratory: Denies chest pain. General: Well developed, well nourished, in no acute distress. Appears stated age. Head: Normocephalic, atraumatic. Eyes: Pupils are equal, round and reactive to light and accommodation. Conjunctivae are clear. Vision grossly normal. Ears: TM intact and clear bilat, EAC WNL Nose: Patent, without discharge. Mouth: There are no ulcers or lesions noted. No inflammation, no post nasal drip, no plaques nor exudates. Neck: Supple, no adenopathy or thyromegaly. Breast: Performs SBE Lungs: Clear to auscultation bilaterally. No rales, rhonchi or wheeze noted. Good air flow in all gasca. Heart: Mildly tachycardic, Regular rhythm. No murmurs, click, rubs or gallops are noted. Abdomen: Bowel sounds present in all quadrants. The abdomen is soft, nontender, with no masses or organomegaly noted. No hernias are noted. : Deferred. Reviewed JULIA & recommendations for routine J[employer]ER Musculoskeletal: Joints are nontender, without swelling, redness, or effusions. Range of motion is observed to be normal. Pulses: Peripheral pulses are equal and palpable bilaterally. Extremities: No clubbing, cyanosis nor edema is noted. Neurologic: Gait and station normal. Cranial Nerves 2-12 intact. Motor strength grossly symmetrical and intact. No sensory loss. Balance normal. Skin: No rashes, ulcers, or lesions noted. Turgor is good. Skin color is good. Hair and nails are without abnormalities. Mild eczema bilat hands Psych: Normal eye contact, affect and mood appropriate, and normal interactions. Patient is alert and appropriate to context. Results: Pending - Labs: A1c, inflammatory markers, B and D vitamins, and thyroid tests completed on December 06, 2023. Discussion Notes During today's visit, I discussed with the patient her current condition focusing on the elevated pulse rate and the history of chronic GERD. A 48-hour Holter monitor has been ordered and the patient is advised to follow up with the cardiology outpatient department for scheduling, encouraging prompt responses to the department to expedite timing before her work resumes. Emphasized the importance of lifestyle adjustments in managing anxiety disorders and insomnia ; FU with Psych for potential need for medication changes to address school transition stress. Instructed on monitoring symptoms and provided a health maintenance update. Advised on new lab work to update cholesterol and other health indicators during this wellness visit. Assessment and Plan 1. Chronic Gastroesophageal Reflux Disease (GERD) - Continue famotidine, Carafate, and omeprazole. - FU with gastroenterology. 2. Generalized Anxiety Disorder - Propranolol PRN,FU with counseling and psychiatrist. 3. Insomnia - Continue trazodone at bedtime PRN. 4. Elevated Pulse Rate - 48-hour Holter monitor scheduled. - Coordination with cardiology outpatient. 5. Health Maintenance - Labs - Dermatology follow-up CONT ALL MEDS, FU WITH CARE TEAM, rto 1 year CPE Patient Instructions - Schedule and undergo the 48-hour Holter monitor test as planned. - Continue taking current medications: famotidine, Carafate, omeprazole, propranolol, and trazodone as prescribed. - Follow up with the leather scrubber in a few weeks. - Contact dermatology for an appointment. - Ensure healthy diet choices and inform your care team if symptoms worsen. - Schedule and complete laboratory tests as soon as possible. - Maintain regular counseling appointments. - Report any changes in symptoms or new health concerns promptly. Consent Patient was informed and verbally consented to the use of an ambient scribe for clinic note documentation during this visit. [facility] Medical History (Updated 04/03/25 @ 09:48 by Disha Mercado, [facility]) Anxiety Depression Dysmenorrhea Eczema GERD (gastroesophageal reflux disease) Head ache IBS (irritable colon syndrome) Irritable bowel syndrome with diarrhea IUD (intrauterine device) in place Nausea Overweight Surgical History (Updated 04/03/25 @ 09:34 by Candy Reyna CMA) Hx of cholecystectomy Hx of colonoscopy Hx of endoscopy Family History Mother Diabetes Obese Father Obese HTN (hypertension) Maternal Uncle Cancer Maternal Aunt Breast cancer Paternal Grandmother Alcohol abuse Other Substance abuse Social History Household Members: Spouse Housing: Apartment Alcohol intake: never Patient Tobacco Use Status: Never used Tobacco e-Cigarette/Vaping Use: Never Used service: No Current occupational status: employed 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 Current occupational exposures/hazards: No Sexual orientation: Straight/Heterosexual Gender identity: Female Cognitive needs: No Hearing needs: No Vision needs: No Female Reproductive History Menstrual Age of Menarche: 9 Questionnaire Thrive Questionnaire Date Thrive assessed: 02/16/25 I am a: Patient What is your living situation today?: I have a steady place to live Within the past 12 months, did the food you bought not last and you didn't have the money to get more?: Never true Within the past 12 months, did you worry whether your food would run out before you got money to buy more?: Never true Do you have trouble paying for medicines?: No Do you have trouble getting transportation to medical appointments?: No Do you have trouble paying your heating and electricity bill?: No Do you have trouble taking care of your child, family member or friend?: No Do you have trouble with day-to-day activities such as bathing, preparing meals, shopping, managing finances, etc.?: No Are you currently unemployed and looking for a job?: No Are you interested in more education?: No Please select the resources that you would like help with: None Currently or been in a relationship where the following occur: No concerns reported THRIVE Score: 0 LONNIE-7 AMB Questionnaire LONNIE-7 Date LONNIE - 7 assessed: 02/23/25 Source: Developed by Guillermina Rinaldi B.W. Curry, Ramos Ng and colleagues, with an educational radha from [employer]. Physical exam (Primary Care) Vital Signs: Last Vital Signs Temp 97.2 F 04/03/25 09:24 Pulse 102 H 04/03/25 09:24 Resp 12 04/03/25 09:24 BP 122/70 04/03/25 09:24 Pulse Ox 99 04/03/25 09:24 Oxygen Delivery Method Room Air 04/03/25 09:24 BMI result Body Mass Index 37.3 Tobacco/Smoking Status: Tobacco use Status Tobacco use date assessed 04/03/25 04/03/25 09:21 Patient Tobacco Use Status Never used Tobacco 04/03/25 09:21 e-Cigarette/Vaping Use Never Used 04/03/25 09:21 Thrive Assessment: Date of Thrive Assessment Date Thrive assessed 02/16/25 04/03/25 09:21 Currently or been in a relationship where the following occur: No concerns reported Coding Level of Care Code Est Pt Prev Care 18-39y(86622) Diagnoses Encounter for general adult medical examination without abnormal findings Z00.00 Tachycardia R00.0 Gastroesophageal reflux disease, unspecified whether esophagitis present K21.9 Esophagitis presence: esophagitis presence not specified Laboratory exam ordered as part of routine general medical examination Z00.00 LONNIE (generalized anxiety disorder) F41.1 Moderate episode of recurrent major depressive disorder F33.1 Major depression episode severity: moderate Obesity (BMI 30-39.9) E66.9 Primary insomnia F51.01 Insomnia type: primary Other eczema L30.8 Eczema type: other Assessment & Plan Assessment & Plan (1) Encounter for general adult medical examination without abnormal findings: Onset Date: ~04/03/25 Code(s): Z00.00 - Encounter for general adult medical examination without abnormal findings Category: Medical (2) Tachycardia: Code(s): R00.0 - Tachycardia, unspecified Category: Medical (3) GERD (gastroesophageal reflux disease): Code(s): K21.9 - Gastro-esophageal reflux disease without esophagitis Category: Medical Qualifiers: Esophagitis presence: esophagitis presence not specified Qualified Code(s): K21.9 - Gastro-esophageal reflux disease without esophagitis (4) Laboratory exam ordered as part of routine general medical examination: Code(s): Z00.00 - Encounter for general adult medical examination without abnormal findings Category: Medical (5) LONNIE (generalized anxiety disorder): Code(s): F41.1 - Generalized anxiety disorder Category: Medical (6) MDD (major depressive disorder), recurrent episode: Code(s): F33.9 - Major depressive disorder, recurrent, unspecified Category: Medical Qualifiers: Major depression episode severity: moderate Qualified Code(s): F33.1 - Major depressive disorder, recurrent, moderate (7) Obesity (BMI 30-39.9): Code(s): E66.9 - Obesity, unspecified Category: Medical (8) Insomnia: Code(s): G47.00 - Insomnia, unspecified Category: Medical Qualifiers: Insomnia type: primary Qualified Code(s): F51.01 - Primary insomnia (9) Eczema: Code(s): L30.9 - Dermatitis, unspecified Category: Medical Qualifiers: Eczema type: other Qualified Code(s): L30.8 - Other specified dermatitis Plan . Orders: Orders ECG holter monitor 48 hour Today R00.0 - Tachycardia, unspecified Comprehensive Met. Panel Today K21.9 - Gastro-esophageal reflux disease without esophagitis, Z00.00 - Encounter for general adult medical examination without abnormal findings Hemoglobin A1c Today K21.9 - Gastro-esophageal reflux disease without esophagitis, Z00.00 - Encounter for general adult medical examination without abnormal findings Lipid Panel Today K21.9 - Gastro-esophageal reflux disease without esophagitis, Z00.00 - Encounter for general adult medical examination without abnormal findings Microalbumin, Random (w Creat) Today K21.9 - Gastro-esophageal reflux disease without esophagitis, Z00.00 - Encounter for general adult medical examination without abnormal findings Vitamin B12 and Folate Today K21.9 - Gastro-esophageal reflux disease without esophagitis, Z00.00 - Encounter for general adult medical examination without abnormal findings Vitamin D 25-OH Total Today K21.9 - Gastro-esophageal reflux disease without esophagitis, Z00.00 - Encounter for general adult medical examination without abnormal findings TSH reflex Free T4 Today K21.9 - Gastro-esophageal reflux disease without esophagitis, Z00.00 - Encounter for general adult medical examination without abnormal findings Medications: Changed From omeprazole 20 mg PO ONCE K21.9 - Gastro-esophageal reflux disease without esophagitis To omeprazole 20 mg PO DAILY K21.9 - Gastro-esophageal reflux disease without esophagitis Patient Instructions: Patient Instructions - Schedule and undergo the 48-hour Holter monitor test as planned. - Continue taking current medications: famotidine, Carafate, omeprazole, propranolol, and trazodone as prescribed. - Follow up with the leather scrubber in a few weeks. - Contact dermatology for an appointment.. - Schedule and complete laboratory tests as soon as possible. - Maintain regular counseling appointments. - Report any changes in symptoms or new health concerns promptly. - Return to office in 1 year for physical, sooner if any changes occur. - My office will arrange follow up of Holter once results are available. Health screenings for women You should visit your health care provider from time to time, even if you are healthy. The purpose of these visits is to: Screen for medical issues Assess your risk for future medical problems Encourage a healthy lifestyle Update vaccinations and other preventive care services Help you get to know your provider in case of an illness Information Even if you feel fine, you should still see your provider for regular checkups. These visits can help you avoid problems in the future. For example, the only way to find out if you have high blood pressure is to have it checked regularly. High blood sugar and high cholesterol levels also may not have any symptoms in the early stages. A simple blood test can check for these conditions. There are specific times when you should see your provider or receive specific health screenings. The [place] Preventive Services Task Force publishes a list of recommended screenings. Below are screening guidelines for women ages 18 to 39. BLOOD PRESSURE SCREENING Your blood pressure should be checked at least once every 3 to 5 years if: Your blood pressure is in the normal range (top number less than 120 mm Hg and bottom number less than 80 mm Hg) You don't have risk factors for high blood pressure Ask your provider if you need your blood pressure checked more often if: The top number is 120 to 129 mm Hg or the bottom number is 70 to 79 mm Hg You have diabetes, heart disease, kidney problems, are overweight, or have certain other health conditions You have a first-degree relative with high blood pressure You are Black You had high blood pressure during a If the top number is 130 mm Hg or greater or the bottom number is 80 mm Hg or greater, this is considered stage 1 hypertension. Schedule an appointment with your provider to learn how you can reduce your blood pressure. Watch for blood pressure screenings in your area. Ask your provider if you can stop in to have your blood pressure checked. BREAST CANCER SCREENING Experts do not agree about the benefits of breast self-exams in finding breast cancer or saving lives. Talk to your provider about what is best for you. A screening mammogram is not recommended for most women under age 40. Your provider may discuss and recommend mammograms, MRI scans, or ultrasounds if you have an increased risk for breast cancer, such as: A mother or sister who had breast cancer at a young age (most often starting screening earlier than the age the close relative was diagnosed) You carry a high-risk genetic marker CERVICAL CANCER SCREENING Cervical cancer screening should start at age 21 years unless your provider advises otherwise. After the first test: Women ages 21 through 29 should have a Pap test every 3 years. Exoprts do not agree on whether HPV testing is recommended for this age group. Women ages 30 through 65 should be screened with either a Pap test every 3 years or the HPV test every 5 years or both tests every 5 years (called cotesting ). Women who have been treated for precancer (cervical dysplasia) should continue to have Pap tests for 20 years after treatment or until age 65, whichever is longer. If you have had your uterus and cervix removed (total hysterectomy), and you have not been diagnosed with cervical cancer or precancer (high grade cervical neoplasia), you do not need cervical cancer screening. CHOLESTEROL SCREENING Cholesterol screening should begin at: Age 45 for women with no known risk factors for coronary heart disease Age 20 for women with known risk factors for coronary heart disease Repeat cholesterol screening should take place: Every 5 years for women with normal cholesterol levels More often if changes occur in lifestyle (including weight gain and diet) More often if you have diabetes, heart disease, kidney problems, or certain other conditions DIABETES SCREENING You should be screened for diabetes starting at age 35 and then repeated every 3 years if you have no risk factors for diabetes. Screening may need to start earlier and be repeated more often if you have other risk factors for diabetes, such as: You have a first degree relative with diabetes. You are overweight or have obesity. You have high blood pressure, prediabetes, or a history of heart disease. Screening for diabetes should be done if you are planning to become and you are overweight and have other risk factors such as high blood pressure. DENTAL EXAM Go to the dentist once or twice every year for an exam and cleaning. Your dentist will evaluate if you need more frequent visits. EYE EXAM Have an eye exam every 5 to 10 years before age 40. If you have vision problems, have an eye exam every 2 years or more often if recommended by your provider. You should have an eye exam that includes an examination of your retina (back of your eye) at least every year if you have diabetes. IMMUNIZATIONS Commonly needed vaccines include: Flu shot: get one every year. COVID-19 vaccine: ask your provider what is best for you. Tetanus-diphtheria and acellular pertussis (Tdap) vaccine: have one at or after age 19 as one of your tetanus-diphtheria vaccines if you did not receive it as an adolescent. Tetanus-diphtheria: have a booster (or Tdap) every 10 years. Varicella vaccine: receive 2 doses if you never had chickenpox or the varicella vaccine. Hepatitis B vaccine: receive 2, 3, or 4 doses, depending on your exact circumstances. Measles, mumps, and rubella (MMR) vaccine: receive 1 to 2 doses if you are not already immune to MMR. Your provider can tell you if you are immune. Ask your provider about the human papillomavirus (HPV) vaccine if: You have not received the HPV vaccine in the past You have not completed the full vaccine series (you should catch up on this shot) Ask your provider if you should receive other immunizations if you have certain health problems that increase your risk for some diseases such as pneumonia. INFECTIOUS DISEASE SCREENING Women who are sexually active should be screened for chlamydia and gonorrhea up until age 25. Women 25 years and older should be screened for chlamydia and gonorrhea if at high risk. Screening for hepatitis C: All adults ages 18 to 79 should get a one-time test for hepatitis C. people should be screened at every . Screening for human immunodeficiency virus (HIV): All people ages 15 to 65 should get a one-time test for HIV. Depending on your lifestyle and medical history, you may also need to be screened for infections such as syphilis and HIV, as well as other infections. PHYSICAL EXAM All adults should visit their provider from time to time, even if they are healthy. The purpose of these visits is to: Screen for disease Assess your risk of future medical problems Encourage a healthy lifestyle Update your vaccinations and other preventive care services Maintain a relationship with a provider in case of an illness Your height, weight, and BMI should be checked at every exam. During your exam, your provider may ask you about: Depression and anxiety Diet and exercise Alcohol and tobacco use Safety issues, such as using seat belts, smoke detectors, and intimate partner violence Your medicines and risk for interactions SKIN SELF-EXAM Your provider may check your skin for signs of skin cancer, especially if you're at high risk, such as if you: Have had skin cancer before Have close relatives with skin cancer Have a weakened immune system OTHER SCREENING Talk with your provider about colon cancer screening if you have a strong family history of colon cancer or polyps, or if you have had inflammatory bowel disease or polyps yourself. Routine bone density screening of women under 40 is not recommended.
[2025-04-03 09:24] VITALS: BP 122/70; PULSE 102; RESP 12; TEMP 36.2; O2SAT 99; BMI 37.3
[2025-04-03 09:50] VITALS: BP 120/64; PULSE 99
== END 2025-04-03 09:58 | disposition home or self-care (01) ==
LOC: HO.HMCFM 09:17
PROVIDERS: PCP Nurse Practitioner Family; Visit Provider Nurse Practitioner Family
DX: Z00.00 Encounter for general adult medical examination without abnormal findings (principal); F33.1 Major depressive disorder, recurrent, moderate; E66.9 Obesity, unspecified; Z68.37 Body mass index [BMI] 37.0-37.9, adult; R00.0 Tachycardia, unspecified; K21.9 Gastro-esophageal reflux disease without esophagitis; F41.1 Generalized anxiety disorder; F51.01 Primary insomnia; L30.8 Other specified dermatitis

== ENCOUNTER 2025-04-23 15:19 | Outpatient (AMB) | payer BC, SELFPAY ==
--- NOTE | 2025-04-23 15:24 | A.OFFVIS_ITS ---
Vital Signs 04/23/25 15:25 Height 5 ft 4 in Weight 216 lb 0.848 oz BMI 37.1 BP 131/83 Blood Pressure Location Lt brachial Position Sitting Intake Visit Reasons: Gastroesophageal reflux disease (GERD) Intake Note: Odalis presents in follow up GERD and to discuss FMLA. 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 Patient reports that she sometimes randomly gets a very intense upper abdomen pain. She states that it feels like someone is turning her organs around . She also reports constipation alternating with diarrhea. Clerk Analyst Required: No Accompanied by: Self / Same As Patient Allergies bupropion (From Wellbutrin) Adverse Reaction (Intermediate, Verified 04/23/25 15:35) Nausea HPI HPI Gastroesophageal reflux disease (GERD): Details: LAST VISIT: IBS (irritable colon syndrome) Nausea GERD (gastroesophageal reflux disease) Postprandial diarrhea S/P cholecystectomy Plan Patient will continue taking Citrucel to help her bulk stools. Continue low FODMAP diet. Patient will try [id number] bile salts to see if that will help her. Increase omeprazole to twice a day before breakfast and before dinner and take sucralfate at bedtime only. Continue avoiding dietary triggers and late night snacking. Staying upright for minimum 3 hours after meals discussed with patient. Patient reports to have busy next few months and is requesting to have her appointment during spring. Patient will call our office if she will have any GI concerning symptoms. She is agreeable to this plan and verbalizes understanding of instructions. She was given the opportunity to ask questions and all questions answered. ? Thank you for allowing me to participate in her care Changed Changed From omeprazole 20 mg PO DAILY 30 caps 0RF K21.9 Changed To omeprazole 20 mg PO BID 60 caps 1RF K21.9 TODAY'S VISIT Patient is here today for follow-up. Patient currently is feeling fairly well. She is of problems who. 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 Patient reports that next week she will be starting. 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 Patient gets very dizzy. Continues to have occasional urges to go to the bathroom specially after meals. Currently taking sucralfate with fair results. Patient is taking omeprazole in the morning and famotidine at bedtime. Acid reflux is suppressed for the most part. Patient denies dyspepsia, dysphagia or odynophagia. Denies melena, hematochezia, unintentional weight loss or ribbon like stools PFSH Medical History (Updated 04/03/25 @ 09:48 by Disha Mercado, INTERMODAL OWNER OPERATOR [facility]) IUD (intrauterine device) in place Depression Anxiety Eczema Overweight Head ache Dysmenorrhea IBS (irritable colon syndrome) Nausea GERD (gastroesophageal reflux disease) Irritable bowel syndrome with diarrhea Surgical History (Updated 04/03/25 @ 09:34 by Candy Reyna [facility]) Hx of cholecystectomy Hx of endoscopy Hx of colonoscopy Family History Mother Diabetes Obese Father Obese HTN (hypertension) Maternal Uncle Cancer Maternal Aunt Breast cancer Paternal Grandmother Alcohol abuse Other Substance abuse Social History Household Members: Spouse Housing: Apartment Alcohol intake: never Patient Tobacco Use Status: Never used Tobacco e-Cigarette/Vaping Use: Never Used service: No Current occupational status: employed 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 Current occupational exposures/hazards: No Sexual orientation: Straight/Heterosexual Gender identity: Female Cognitive needs: No Hearing needs: No Vision needs: No Female Reproductive History Menstrual Age of Menarche: 9 Review of Systems Const Denies weight gain and Denies weight loss ENT Reports no additional complaints, Denies dysphagia and Denies odynophagia Card Reports no additional complaints Resp Reports no additional complaints GI Reports abdominal pain (epigastric burning), Denies belching, Denies melena, Denies bloating, Denies change in bowel habits, Denies dysphagia, Denies excessive flatus, Denies dyspepsia, Reports heartburn (Occasional), Denies diarrhea, Reports loose stools, Denies nausea, Denies odynophagia and Denies vomiting Reports no additional complaints Musc Reports no additional complaints Neuro Reports no additional complaints Psych Reports no additional complaints Endo Reports no additional complaints Physical Exam Vital Signs: BMI result Body Mass Index 37.1 Const General: healthy appearing and no acute distress Nutritional Appearance: obese Orientation/consciousness: patient oriented x3 Resp Effort & Inspection: normal respiratory effort, able to speak in complete sentences, no tracheal deviation and symmetric chest movement Auscultation: clear to auscultation bilaterally Cardio Rate: regular rate GI Inspection: Yes normal to inspection, No distended and Yes obesity Palpation (GI): Soft to palpation, not firm, nontender and No hepatosplenomegaly present Auscultation: normal bowel sounds General: Yes no CVA tenderness Back/Spine/Pelvis Back: no CVA tenderness Skin General skin exam: elasticity normal, turgor normal and dry skin Neuro General: patient oriented x3 Psych Appearance: grossly normal Mental Status: mental status grossly normal Assessment & Plan Assessment & Plan (1) GERD (gastroesophageal reflux disease): Code(s): K21.9 - Gastro-esophageal reflux disease without esophagitis Category: Medical Qualifiers: Esophagitis presence: esophagitis presence not specified Qualified Code(s): K21.9 - Gastro-esophageal reflux disease without esophagitis (2) IBS (irritable colon syndrome): Code(s): K58.9 - Irritable bowel syndrome, unspecified Category: Medical Qualifiers: Irritable bowel syndrome type: with constipation Qualified Code(s): K58.1 - Irritable bowel syndrome with constipation (3) Postprandial diarrhea: Code(s): K52.9 - Noninfective gastroenteritis and colitis, unspecified Plan Patient will continue taking omeprazole in the morning and famotidine at bedtime. We can hold sucralfate and try to control her diarrhea better with Wechol. This could be better controlled if she can take this twice a day. Hopefully did diarrhea will be controlled better when taking in the morning and in the evening versus sucralfate in the afternoon and at bedtime. She can continue low FODMAP diet. Patient will try it this week and next week. She will let us know if she will prefer to stay on it or if she would like to be switched back to sucralfate. I will see her in 3 months, sooner on as needed basis. She is agreeable to this plan and verbalizes understanding of instructions. She was given the opportunity to ask questions and all questions answered. Thank you for allowing me to participate in her care Medications: New colesevelam (WelChol) 625 mg PO BID 60 tabs 2RF Coding Level of Care Code Est Pt Level 4 (80217) Complex EM visit Add On G2211 Diagnoses Gastroesophageal reflux disease, unspecified whether esophagitis present K21.9 Esophagitis presence: esophagitis presence not specified Irritable bowel syndrome with constipation K58.1 Irritable bowel syndrome type: with constipation Postprandial diarrhea K52.9 Time Spent (min) 35 Comment 25 minutes spent with patient and additional 10 minutes spent reviewing her records
[2025-04-23 15:25] VITALS: BP 131/83; BMI 37.1
--- OUTSIDE RECORDS SUMMARY | 2025-04-23 15:52 | XMS_ITS | Clinical Summary ---
Author Organization [employer] Address [address] [facility] [address] [place] [address] Care Team Providers Care Domestic Cleaner Name Role Phone AmandeepFiona Unavailable Unavailable Social [...] series) 2017 Pap Smear 2019 COVID-19 Vaccine (1 - 2023-2 5 season) 2024 Influenza Vaccine (#1) 2025 Zoster Vaccines (1 of 2) 2048 [...] age to complete this topic Care Teams Domestic Cleaner Relationship Specialty Start Date End Date Fiona Bernstein [facility] Navigator 05/05/23
--- OUTSIDE RECORDS SUMMARY | 2025-04-23 15:53 | XMS_ITS | Clinical Summary ---
Author Organization [facility] Address [address] [place] [address] Phone Care Team Providers Care Chief Engineer Drilling And Recovery Name Role Phone Unknown, Unknown Primary Care Provider Unavai lable Allergies No known active allergies Medications dicyclomine (BENTYL) 10 MG capsule Take 20 mg by mouth 3 (three) times a day. Active nortriptyline (PAMELOR) 10 MG capsule Take 10 mg by mouth nightly at bedtime. Active sertraline (ZOLOFT) 100 MG tablet Take 100 mg by mouth daily. Active famotidine (PEPCID) 20 MG tablet Take 20 mg by mouth 2 (two) times a day. Active desog-e.estradi oL/e.estradioL (KARIVA) 0.15-0.02 mgx21 /0.01 mg x 5 per tablet Take 1 tablet by mouth daily. Active propranoloL (INDERAL) 10 MG immediate release tablet Take 10 mg by mouth 3 (three) times a day. Active ondansetron (ZOFRAN) 4 MG tablet Take 4 mg by mouth every 8 (eight) hours as needed for nausea. Active Active Problems No known active problems Immunizations Immunization Administration Dates Next Due COVID-19 (Pre-06/28) Moderna Vaccine, mRNA, PF 12/11/2020,11/13/2020 DTaP-Hep B-IPV 05/01/2003, 2,1998,06/25 Dtap, 5 Pertussis Antigens 05/01/2003,,1998,08/29,1998 HPV9 02/03/2017,03/26/2016,12/17/2015 Hepatitis A, ped/adol, 2 dose 04/03/2014, 014 Hepatitis B 1998,1998,1998 Hib,PRP-T 07/21/1999, 9,1998,06/25 Influenza, Injectable,kandice valent, Preservative Free, Ped 02/03/2017 MMR 05/01/2003,07/21/1999,04/03/1999 Meningococcal B, recombinant (MenB-FHbp) 09/14/2017,02/03/2017 Meningococcal MCV4P 12/17/2015,08/26/2009 Td (adult),2 Lf Tetanus Toxo id, PF, Adsorbed 03/02/2019 Tdap 08/26/2009 Varicella 06/17/2007,07/21/1999 Social History Tobacco Use Types Packs/Day Years Used Date Smoking Tobacco: Never Assessed Education Answer Date Recorded Are you interested in more education? Not on jose angel e 01/01/2023 Are you concerned about learning? Not on file 01/01/2023 No 01/01/2023 No 01/01/2023 Digital Access Answer Date Recorded No 01/30/2023 No 01/30/2023 Reliable internet access at home? Not on file 01/30/2023 Device with a working camera? Not on file Comments Unknown Sex and Gender Information Value Date Recorded Sex Assigned at Not on file Legal Sex Female 9:53 AM EDT Gender Identity Not on file Sexual Orientation Not on file Last Filed Vital Signs Vital Sign Reading Time Taken Comments Blood Pressure 116/86 08/09/2023 11:58 AM EST Pulse 99 08/09/2023 11:58 AM EST Temperature 36.9 C (98.4 F) 08/09/2023 11:58 AM EST Respiratory Rate 18 08/09/2023 11:58 AM EST Oxygen Saturation 97% 08/09/2023 11:58 AM EST Inhaled Oxygen Concentration - - Weight - - Height - - Body Mass Index - - Plan of Treatment Health Maintenance Due Date Last Done Comments DEPRESSION SCREENING 2010 SMOKING Hx and SMOKELESS TOBACCO SCREENING 2011 HEPATITIS C SCREENING 2016 HIV ONE-TIME SCREENING (18-65 YEARS) 2016 PAP SMEAR 2019 COVID-19 VACCINE ( season) 2024 12/11/2020, 11/13/2020 Adult Td,Tdap Booster 03/02/2029 03/02/2019, 009 HIB VACCINES Completed 07/21/1999, 10/1998, 1998, Additional history exists HEPATITIS A VACCINES Completed 04/03/2014, 09/19/19 14 MENINGOCOCCAL VACCINES (ACWY) Completed 12/17/2015, 08/26/2009 HPV VACCINES Completed 02/03/2017, 03/07, 12/17/2015 MENINGOCOCCAL VACCINES (B) Completed 09/14/2017, PNEUMOCOCCAL VACCINES (0-49 years) Aged Out No longer eligible based on patient's age to complete this topic Medical Devices Not on file Insurance ([place]) [address] [facility] Member Subscriber Plan / Payer (Ef fective 2023-Present) Name:Odalis Michaels Relation to Subscriber:Self Name:Odalis Michaels Payer ID:Not on file Type:HMO Address: [place] [id number] [facility] Care Teams Chief Engineer Drilling And Recovery Relationship Specialty Start Date End Date Unknown, Unknown, PCP - General 08/09/23 Additional Source Comments The information contained in this document represents components of the legal health record. It is not the complete legal health record.[facility]
--- OUTSIDE RECORDS SUMMARY | 2025-04-23 15:53 | XMS_ITS | Clinical Summary ---
Author Organization [facility] Address [address] [place] [id number] Phone Care Team Providers Care Tank Driver Name Role Phone Krissy Guzman MD Primary Care Provider [phone] Allergies No known active allergies Medications dicyclomine [...] 10/06/2018 Overview (10/06/2018): Saw Dr Beyer at [facility]- Is on carafate and Dicyclomine. Esophageal reflux 10/15/2017 Overview (10/06/2018): GERD (530.81) Onset: 10/15/2017 Added by: Sushma Benitez GI at [facility] ctr- Dr Beyer- is on famotidine [...] Health Maintenance Due Date Last Done Comments COVID-19 Vaccine ( season) 2024 Influenza Vaccines (#1) 2025 02/03/2017 DTaP,Tdap,and Td Vaccines (8 - Td or [...] patient's age to complete this topic Insurance [facility] [place] [address] Care Teams Tank Driver Relationship Specialty Start Date End Date Krissy Guzman MD [address] [place] [address] PCP - General 01/12/18
== END 2025-04-23 17:05 | disposition home or self-care (01) ==
LOC: HO.HGI 15:19
PROVIDERS: PCP Nurse Practitioner Family; Visit Provider Nurse Practitioner Family
DX: K21.9 Gastro-esophageal reflux disease without esophagitis (principal); K58.2 Mixed irritable bowel syndrome
CPT/HCPCS: 99214

== ENCOUNTER 2025-04-26 12:45 | Outpatient (AMB) | payer BC, SELFPAY ==
[2025-04-26 12:54] VITALS: BP 108/78; BMI 37.8
--- NOTE | 2025-04-26 12:54 | MHC.OFFVIS ---
Vital Signs 04/26/25 12:54 Height 5 ft 4 in Weight 220 lb BMI 37.8 BP 108/78 Intake Visit Reasons: 6 weeks IUD Check Fleet Manager: Fleet Manager Present (Angela) Allergies bupropion (From Wellbutrin) Adverse Reaction (Intermediate, Verified 04/26/25 12:54) Nausea HPI Comments Details: Patient is here today for a follow up status post IUD insertion check. She has no concerns today. [facility] Medical History (Updated 04/03/25 @ 09:[address] [facility]) IUD (intrauterine device) in place Depression Anxiety Eczema Overweight Head ache Dysmenorrhea IBS (irritable colon syndrome) Nausea GERD (gastroesophageal reflux disease) Irritable bowel syndrome with diarrhea Surgical History (Updated 04/03/25 @ 09:34 by Candy Reyna [facility]) Hx of cholecystectomy Hx of endoscopy Hx of colonoscopy Family History Mother Diabetes Obese Father Obese HTN (hypertension) Maternal Uncle Cancer Maternal Aunt Breast cancer Paternal Grandmother Alcohol abuse Other Substance abuse Social History Household Members: Spouse Housing: Apartment Alcohol intake: never Patient Tobacco Use Status: Never used Tobacco e-Cigarette/Vaping Use: Never Used service: No Current occupational status: employed 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 Current occupational exposures/hazards: No Sexual orientation: Straight/Heterosexual Gender identity: Female Cognitive needs: No Hearing needs: No Vision needs: No Female Reproductive History Menstrual Age of Menarche: 9 Review of Systems Const All systems reviewed & are unremarkable except as noted in HPI and below Physical Exam Vital Signs: Last Vital Signs BP 108/78 04/26/25 12:54 BMI result Body Mass Index 37.8 Const General: cooperative, healthy appearing and no acute distress Orientation/consciousness: patient oriented x3 GI Inspection: Yes normal to inspection Palpation (GI): Soft to palpation and Other GI palpation findings present (Nontender) Rectal Exam - Female: visual inspection normal General: Yes bladder normal to palpation External Female Exam: normal appearance of the urethra Speculum Exam - Vagina: normal appearance of the vagina, normal palpation and normal vaginal discharge Speculum Exam - Cervix: normal appearance of the cervix, normal palpation and Other cervical findings present (IUD strings at the os) Bimanual exam- vagina & uterus: normal bimanual exam, normal palpation, uterine size normal, bladder normal to palpation, normal palpation, uterine shape normal and non-tender Bimanual Exam- Adnexa, other: normal adnexae Neuro General: patient oriented x3 Assessment & Plan Assessment & Plan (1) IUD check up: Code(s): Z30.431 - Encounter for routine checking of intrauterine contraceptive device Plan Continue to monitor bleeding pattern, report any heavier prolonged episodes or concerns. Annual exam scheduled for 08/2025. The patient expressed understanding and agreement with the plan of care. All of her questions and concerns were addressed to the best of my ability. This note is constructed using voice recognition software. While every effort has been made to ensure accuracy, felt cutting machine operator errors may have been included. Coding Level of Care Code Est Pt Level 2 (30927) Diagnoses IUD check up Z30.431
== END 2025-04-26 13:08 | disposition home or self-care (01) ==
LOC: HO.HWS 12:45
PROVIDERS: PCP Nurse Practitioner Family; Visit Provider Advanced Practice Midwife
DX: Z30.431 Encounter for routine checking of intrauterine contraceptive device (principal)
CPT/HCPCS: 99212

== ENCOUNTER → 2025-05-11 15:12 | Outpatient (REF) | payer BC, SELFPAY ==
--- NOTE | 2025-05-11 15:15 | HM_ITS ---
* Total monitoring time 2 days. * Underlying rhythm is sinus with an average rate of 89/Min. * Rare supraventricular and ventricular ectopy. * No significant tachyarrhythmias. * No significant pauses or high-grade AV blocks. * Symptoms of 'whooshing in ears', 'rapid heartbeat', in patient diary correlates with sinus rhythm. MTDD
--- OUTSIDE RECORDS SUMMARY | 2025-05-11 15:27 | XMS_ITS | Clinical Summary ---
Author Organization [employer] Address [address] [facility] [address] [place] [address] Care Team Providers Care Physical Therapy Aides Teacher Name Role Phone AmandeepFiona Unavailable Unavailable Social [...] age to complete this topic Care Teams Physical Therapy Aides Teacher Relationship Specialty Start Date End Date Fiona Bernstein [facility] Navigator 05/05/23
--- OUTSIDE RECORDS SUMMARY | 2025-05-11 15:28 | XMS_ITS | Encounter Summary ---
Author Organization [facility] Address [address] [place] [address] Phone Care Team Providers Care Cnc Programmer Name Role Phone Krissy Guzman MD Primary Care Provider [phone] Reason for Visit * Reason Comments Med Refill Encounter Details Date Type Department Care Team (Late st Contact Info) Description 09/22/2018 Refill [facility] - [place] [address] [place] [address] Krissy Guzman MD [address] [place] [address] Painful menstrual periods Social History Tobacco Use Types Packs/Day Years Used Date Smoking Tobacco: Passive Smo ke Exposure - Never Smoker Smokeless Tobacco: Never Comments:Never Smoker Comments Unknown Sex and Gender Information Value Date Recorded Sex Assigned at Not on file Legal Sex Female 6:33 PM EDT Gender Identity Not on file Sexual Orientation Not on file documented as of this encounter Plan of Treatment Not on file documented as of this encounter Visit Diagnoses Diagnosis Painful menstrual periods Dysmenorrhea documented in this encounter Care Teams Cnc Programmer Relationship Specialty Start Date End Date Krissy Guzman MD [address] [place] [address] PCP - General 01/12/18 documented as of this encounter
--- OUTSIDE RECORDS SUMMARY | 2025-05-11 15:28 | XMS_ITS | Clinical Summary ---
Author Organization [facility] Address [address] [place] [phone] Phone Care Team Providers Care Sanitation Truck Driver Name Role Phone Krissy Guzman MD Primary Care Provider [phone] Allergies No known active allergies Medications dicyclomine [...] 10/06/2018 Overview (10/06/2018): Saw Dr Beyer at [facility]- Is on carafate and Dicyclomine. Esophageal reflux 10/15/2017 Overview (10/06/2018): GERD (530.81) Onset: 10/15/2017 Added by: Sushma Benitez GI at [facility] ctr- Dr Beyer- is on famotidine [...] Date Last Done Comments Influenza Vaccines (#1) 2025 02/03/2017 COVID-19 Vaccine ( season) 2025 DTaP,Tdap,and Td Vaccines (8 - Td or [...] patient's age to complete this topic Insurance [facility] Care Teams Sanitation Truck Driver Relationship Specialty Start Date End Date Krissy Guzman MD [address] [place] [address] PCP - General 01/12/18
--- OUTSIDE RECORDS SUMMARY | 2025-05-11 15:28 | XMS_ITS | Encounter Summary ---
Author Organization [facility] Address [address] [place] [address] Phone Care Team Providers Care Chin Strap Sewer Name Role Phone Krissy Guzman MD Primary Care Provider [phone] Encounter Details Date Type Department Care Team (Late st Contact Info) Description 08/28/2011 Conversion Encounter [facility] [address] [place] [address] [id number] Social History Tobacco Use Types Packs/Day Years Used Date Smoking Tobacco: Never Assessed Comments Unknown Sex and Gender Information Value Date Recorded Sex Assigned at Not on file Legal Sex Female 6:33 PM EDT Gender Identity Not on file Sexual Orientation Not on file documented as of this encounter Plan of Treatment Not on file documented as of this encounter Visit Diagnoses Not on filedocumented in this encounter Care Teams Chin Strap Sewer Relationship Specialty Start Date End Date Krissy Guzman MD [address] [place] [address] PCP - General 01/12/18 documented as of this encounter
== END ==
LOC: HO.CARD 15:12
PROVIDERS: Visit Provider Nurse Practitioner Family
DX: R00.0 Tachycardia, unspecified (principal)
CPT/HCPCS: 93225

== ENCOUNTER → 2025-05-11 15:15 | Outpatient (BNV) | payer BC, SELFPAY | PROVIDERS: Visit Provider Internal Medicine | DX: I49.3 Ventricular premature depolarization (principal); I49.49 Other premature depolarization | CPT/HCPCS: 93227 ==

== ENCOUNTER 2025-05-30 14:35 | Outpatient (AMB) | payer BC, SELFPAY ==
--- NOTE | 2025-05-30 07:34 | A.OFFPC_ITS ---
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 Results below reviewed w/ her in detail She felt it was a good data set w/ exception that it was done on the weekend; not while she was working; work seems to trigger some of her tachycardia episodes. She is no longer using propranolol now that sertraline is increased. she offers no new cardiac complaints. reviewed family hx and Dad has HTN. There was a grandparent w/ dementia and stroke; otherwise negative cardiac history. Review of Systems - Cardiovascular: Reports episodic tachy cardia. Denies any chest pain. - Psychiatric: Reports improvement in an xiety symptoms with current Zoloft regimen. Physical Exam Limited physical exam was conducted Awake alert NAD Speaking in full sentences Engaging, appropriate Mood and affect appropriate Results See below Assessment and Plan Offered 3 options 1) consult w/ cards. she will check her insurance and get back to me on this 2) do nothing; as holter did not reveal any significant findings 3) start a daily BB, like propranolol or metoprolol, self monitor HR via smart watch and follow. Pt would like to think about this and get back to me via the portal. Telehealth Attestation The telemedicine visit was conducted via secure video interface, and the documentation accurately reflects the discussions and decisions made during the consultation. The patient has been explained that this is an interactive (audio/video) telehealth encounter and what that consists of. The patient understands and wishes to proceed. [employer] platform was used. Total time spent caring for the patient today was 21 minutes. This includes time spent before the visit reviewing the chart, time spent during the visit, and time spent after the visit on documentation, reviewing laboratory results, diagnostic imaging, medications, performing a medically necessary evaluation, counseling on diagnoses, care coordination, ordering appropriate tests, ordering appropriate medications, review of tests performed by other providers, reporting test results with the patient, communication with other healthcare providers. [facility] Medical History (Updated 05/31/25 @ 11:34 by Disha Mercado, [facility]) Anxiety Depression Dysmenorrhea Eczema GERD (gastroesophageal reflux disease) Head ache IBS (irritable colon syndrome) Irritable bowel syndrome with diarrhea IUD (intrauterine device) in place Nausea Overweight Surgical History (Updated 04/03/25 @ 09:34 by Candy Reyna [facility]) Hx of cholecystectomy Hx of colonoscopy Hx of endoscopy Family History Mother Diabetes Obese Father Obese HTN (hypertension) Maternal Uncle Cancer Maternal Aunt Breast cancer Paternal Grandmother Alcohol abuse Other Substance abuse Social History Household Members: Spouse Housing: Apartment Alcohol intake: never Patient Tobacco Use Status: Never used Tobacco e-Cigarette/Vaping Use: Never Used service: No Current occupational status: employed 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 Ivan Mckeon, Guillermina Zapien, Ramos Ng and colleagues, with an educational radha from [employer]. Physical exam (Primary Care) Tobacco/Smoking Status: Tobacco use Status Tobacco use date assessed 04/03/25 05/30/25 07:36 Patient Tobacco Use Status Never used Tobacco 05/30/25 07:36 e-Cigarette/Vaping Use Never Used 05/30/25 07:36 Thrive Assessment: Date of Thrive Assessment Date Thrive assessed 02/16/25 05/30/25 07:36 Telehealth Telehealth Telehealth Platform: [employer] Location of provider rendering services: practice address Location of patient: address on file Patient Identification confirmed using: Name, : Yes Telehealth method: voice only Patient verbally consented to treatment: Yes Patient verbally consented to billing insurance company: Yes Patient informed of any privacy concerns related to visit: Yes Minutes spent on Phone/Video with Pt.: 7 Results Reviewed Results Reviewed: Reason for Exam: R00.0 - Tachycardia, unspecified * Total monitoring time 2 days. * Underlying rhythm is sinus with an average rate of 89/Min. * Rare supraventricular and ventricular ectopy. * No significant tachyarrhythmias. * No significant pauses or high-grade AV blocks. * Symptoms of 'whooshing in ears', 'rapid heartbeat', in patient diary correlates with sinus rhythm. Dictated By: Mohsen Flores MD Signed By: <Electronically signed by Mohsen Flores MD> 05/26/25 7740 Coding Level of Care Code Tele Est Pt Level 3 (37737) Complex EM visit Add On G2211 Diagnoses Tachycardia R00.0 Family history of stroke Z82.3 Family history of essential hypertension Z82.49 Encounter to discuss test results Z71.2 Assessment & Plan Assessment & Plan (1) Tachycardia: Comment: Reason for Exam: R00.0 - Tachycardia, unspecified ? Total monitoring time 2 days. ? Underlying rhythm is sinus with an average rate of 89/Min. ? Rare supraventricular and ventricular ectopy. ? No significant tachyarrhythmias. ? No significant pauses or high-grade AV blocks. ? Symptoms of 'whooshing in ears', 'rapid heartbeat', in patient diary correlates with sinus rhythm. Dictated By: Mohsen Flores MD Signed By: <Electronically signed by Mohsen Flores MD> 05/26/25 7438 Code(s): R00.0 - Tachycardia, unspecified Category: Medical (2) Family history of stroke: Comment: grandparent Code(s): Z82.3 - Family history of stroke Category: Medical (3) Family history of essential hypertension: Comment: dad Code(s): Z82.49 - Family history of ischemic heart disease and other diseases of the circulatory system Category: Medical (4) Encounter to discuss test results: Code(s): Z71.2 - Person consulting for explanation of examination or test findings Plan .
--- OUTSIDE RECORDS SUMMARY | 2025-05-30 17:12 | XMS_ITS | Clinical Summary ---
Author Organization [employer] Address [address] [facility] [address] [place] [address] Care Team Providers Care Manager Stars Name Role Phone AmandeepFiona Unavailable Unavailable Social [...] COVID-19 Vaccine (1 - 2023-2 5 season) 2025 Influenza Vaccine (#1) 2025 Zoster Vaccines (1 [...] age to complete this topic Care Teams Manager Stars Relationship Specialty Start Date End Date Fiona Bernstein [facility] Navigator 05/05/23
--- OUTSIDE RECORDS SUMMARY | 2025-05-30 17:12 | XMS_ITS | Clinical Summary ---
Author Organization [facility] Address [address] [place] [address] Phone Care Team Providers Care Order Tracer Name Role Phone Unknown, Unknown Primary Care [...] SCREENING (18-65 YEARS) 2016 PAP SMEAR 2019 INFLUENZA VACCINE (#1) 2025 02/03/2017 COVID-19 VACCINE ( season) 2025 12/11/2020, 11/13/2020 Adult Td,Tdap Booster 03/02/2029 03/02/2019, 009 HIB VACCINES Completed 07/21/1999, 10/1998, 1998, Additional history exists HEPATITIS A VACCINES Completed 04/03/2014, 09/19/19 14 MENINGOCOCCAL VACCINES (ACWY) Completed 12/17/2015, 08/26/2009 MENINGOCOCCAL VACCINES (B) Completed 09/14/2017, PNEUMOCOCCAL VACCINES (0-49 years) Aged Out No longer eligible based on patient's age to complete this topic Medical Devices Not on file Insurance ([place]) [address] [facility] Care Teams Order Tracer Relationship Specialty Start Date End Date Unknown, Unknown, PCP - General 08/09/23 Additional Source Comments The information contained in this document represents components of the legal health record. It is not the complete legal health record.[facility]
--- OUTSIDE RECORDS SUMMARY | 2025-05-30 17:12 | XMS_ITS | Clinical Summary ---
Author Organization [facility] Address [address] [place] [address] Phone Care Team Providers Care Solderer Production Line Name Role Phone Krissy Guzman MD Primary Care Provider [phone] Allergies No known active allergies Medications dicyclomine [...] 10/06/2018 Overview (10/06/2018): Saw Dr Beyer at [facility]- Is on carafate and Dicyclomine. Esophageal reflux 10/15/2017 Overview (10/06/2018): GERD (530.81) Onset: 10/15/2017 Added by: Sushma Benitez GI at [facility] ctr- Dr Beyer- is on famotidine History [...] patient's age to complete this topic Insurance [facility] Care Teams Solderer Production Line Relationship Specialty Start Date End Date Krissy Guzman MD [address] [place] [address] PCP - General 01/12/18
--- OUTSIDE RECORDS SUMMARY | 2025-05-30 17:12 | XMS_ITS | Encounter Summary ---
Author Organization [facility] Address [address] [place] [address] Phone Care Team Providers Care Tube Builder Name Role Phone Krissy Guzman MD Primary Care Provider [phone] Encounter Details Date Type Department Care Team (Late st Contact Info) Description 08/28/2011 Conversion Encounter Pediatric And Adolescent Medicine [facility] [address] [place] [address] [phone] Social History Tobacco Use Types Packs/Day Years [...] on filedocumented in this encounter Care Teams Tube Builder Relationship Specialty Start Date End Date Krissy Guzman MD [address] [place] [address] PCP - General 01/12/18 documented as of this encounter
--- OUTSIDE RECORDS SUMMARY | 2025-05-30 17:12 | XMS_ITS | Encounter Summary ---
Author Organization [facility] Address [address] [place] [address] Phone Care Team Providers Care Translator Deaf Name Role Phone Krissy Guzman MD Primary Care Provider [phone] Reason for Visit * Reason Comments Med Refill Encounter Details Date Type Department Care Team (Late st Contact Info) Description 09/22/2018 Refill Pediatric [facility] - [place] [address] [place] [address] Krissy Guzman MD [address] [place] [address] Painful menstrual periods Social History Tobacco Use [...] Dysmenorrhea documented in this encounter Care Teams Translator Deaf Relationship Specialty Start Date End Date Krissy Guzman MD [address] [place] [address] PCP - General 01/12/18 documented as of this encounter
== END 2025-05-30 16:23 | disposition home or self-care (01) ==
LOC: HO.HMCFM 14:35
PROVIDERS: PCP Nurse Practitioner Family; Visit Provider Nurse Practitioner Family
DX: R00.0 Tachycardia, unspecified (principal); Z82.3 Family history of stroke; Z82.49 Family history of ischemic heart disease and other diseases of the circulatory system; Z71.2 Person consulting for explanation of examination or test findings

== ENCOUNTER 2025-07-27 15:52 | Outpatient (AMB) | payer BC, SELFPAY ==
--- NOTE | 2025-07-27 15:55 | A.OFFVIS_ITS ---
Vital Signs 07/27/25 15:56 Height 5 ft 4 in Weight 212 lb BMI 36.4 BP 148/82 H Blood Pressure Location Rt brachial Position Sitting Pulse 98 Pulse Source Pulse Oximeter Pulse Oximetry (%) 97 Oxygen Delivery Method Room Air Intake Visit Reasons: Follow up 3 months Intake Note: Est pt for mgmt of GERD + CIC mgmt. CC: C.O. acute exacerbation of GERD w/ nausea and reflux; onset within the last 48 hours. Pt was forced to leave work early yesterday and had to remain out of work today per this exacerbation. Pt had been doing well up until this point. Confirms she is still taking currently rx'd therapies w/o complication. Network Support Manager Required: No Accompanied by: Self / Same As Patient Allergies bupropion (From Wellbutrin) Adverse Reaction (Intermediate, Verified 04/26/25 12:54) Nausea HPI HPI Follow up 3 months: Details: LAST VISIT: GERD (gastroesophageal reflux disease) IBS (irritable colon syndrome) Postprandial diarrhea Plan Patient will continue taking omeprazole in the morning and famotidine at bedtime. We can hold sucralfate and try to control her diarrhea better with Wechol. This could be better controlled if she can take this twice a day. Hopefully did diarrhea will be controlled better when taking in the morning and in the evening versus sucralfate in the afternoon and at bedtime. She can continue low FODMAP diet. Patient will try it this week and next week. She will let us know if she will prefer to stay on it or if she would like to be switched back to sucralfate. I will see her in 3 months, sooner on as needed basis. She is agreeable to this plan and verbalizes understanding of instructions. She was given the opportunity to ask questions and all questions answered. ? Thank you for allowing me to participate in her care New colesevelam (WelChol) 625 mg PO BID 60 tabs 2RF * TODAY'S VISIT Patient is here today for follow-up. Patient reports that she has been feeling much better since she was placed on Welchol. She is also taking omeprazole in the morning and famotidine at bedtime. Her symptoms are much better controlled. Patient reports that she is able to eat food that she was not able to tolerate in the past few years. However patient reports that couple days ago she started with severe epigastric pain. Reports abdominal bloating. Some nausea. Patient reports dyspepsia without dysphagia or odynophagia. Denies melena, hematochezia, unintentional weight loss or ribbon like stools. [facility] Medical History IUD (intrauterine device) in place Depression Anxiety Eczema Overweight Head ache Dysmenorrhea IBS (irritable colon syndrome) Nausea GERD (gastroesophageal reflux disease) Irritable bowel syndrome with diarrhea Surgical History (Updated 07/27/25 @ 15:59 by MARIA DOLORES Angulo) Wilber teeth extracted Hx of cholecystectomy Hx of endoscopy Hx of colonoscopy Family History Mother Diabetes Obese Father Obese HTN (hypertension) Maternal Uncle Cancer Maternal Aunt Breast cancer Paternal Grandmother Alcohol abuse Other Substance abuse Social History Household Members: Spouse Housing: Apartment Alcohol intake: never Patient Tobacco Use Status: Never used Tobacco e-Cigarette/Vaping Use: Never Used service: No Current occupational status: employed 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 Current occupational exposures/hazards: No Sexual orientation: Straight/Heterosexual Gender identity: Female Cognitive needs: No Hearing needs: No Vision needs: No Female Reproductive History Menstrual Age of Menarche: 9 Physical Exam Vital Signs: Last Vital Signs Pulse 98 07/27/25 15:56 BP 148/82 H 07/27/25 15:56 Pulse Ox 97 07/27/25 15:56 Oxygen Delivery Method Room Air 07/27/25 15:56 BMI result Body Mass Index 36.4 Assessment & Plan Assessment & Plan (1) GERD (gastroesophageal reflux disease): Code(s): K21.9 - Gastro-esophageal reflux disease without esophagitis Category: Medical Qualifiers: Esophagitis presence: esophagitis presence not specified Qualified Code(s): K21.9 - Gastro-esophageal reflux disease without esophagitis (2) IBS (irritable colon syndrome): Code(s): K58.9 - Irritable bowel syndrome, unspecified Category: Medical Qualifiers: Irritable bowel syndrome type: with constipation Qualified Code(s): K58.1 - Irritable bowel syndrome with constipation (3) Postprandial epigastric pain: Code(s): R10.13 - Epigastric pain Plan Patient reports severe epigastric pain. We will send her for upper endoscopy to rule out gastritis, esophagitis, duodenitis, H pylori. She is currently taking omeprazole she can continue taking that. May take famotidine at bedtime. Continue Welchol. Avoid dietary triggers and late night snacking. Patient will be seen after the procedure. She was encouraged to call our office if her symptoms will continue or she will develop any other GI concerning symptoms. Patient is agreeable to current plan of care and verbalizes understanding of instructions. She was given the opportunity to ask questions and all questions answered. Thank you for allowing me to participate in her care Orders: Referrals GI Procedure Notification K21.9 - Gastro-esophageal reflux disease without esophagitis, R10.13 - Epigastric pain Coding Level of Care Code Est Pt Level 4 (47415) Complex visit Add On G2211 Diagnoses Gastroesophageal reflux disease, unspecified whether esophagitis present K21.9 Esophagitis presence: esophagitis presence not specified Irritable bowel syndrome with constipation K58.1 Irritable bowel syndrome type: with constipation Postprandial epigastric pain R10.13 Time Spent (min) 35 Comment 25 minutes spent with patient and additional 10 minute spent reviewing her records
[2025-07-27 15:56] VITALS: BP 148/82; PULSE 98; O2SAT 97; BMI 36.4
--- OUTSIDE RECORDS SUMMARY | 2025-07-27 15:56 | XMS_ITS | Encounter Summary ---
Author Organization [facility] Address [address] [place] [phone] Phone Care Team Providers Care Farm Loan Representative Name Role Phone Krissy Guzman MD Primary Care Provider [phone] Reason for Visit * Reason Comments Med Refill Encounter Details Date Type Department Care Team (Late st Contact Info) Description 09/22/2018 Refill [facility] - [place] [address] [place] [address] Krissy Guzman MD [address] [place] [address] Painful menstrual periods Social History Tobacco Use [...] Dysmenorrhea documented in this encounter Care Teams Farm Loan Representative Relationship Specialty Start Date End Date Krissy Guzman MD [address] [place] [address] PCP - General 01/12/18 documented as of this encounter
--- OUTSIDE RECORDS SUMMARY | 2025-07-27 15:56 | XMS_ITS | Encounter Summary ---
Author Organization [facility] Address [address] [place] [address] Phone Care Team Providers Care Warp Knitter Name Role Phone Krissy Guzman MD Primary Care Provider [phone] Encounter Details Date Type Department Care Team (Late st Contact Info) Description 08/28/2011 Conversion Encounter Pediatric And Adolescent Medicine [facility] [address] [place] [address] [phone] Social History Tobacco Use Types Packs/Day Years [...] on filedocumented in this encounter Care Teams Warp Knitter Relationship Specialty Start Date End Date Krissy Guzman MD [address] [place] [address] PCP - General 01/12/18 documented as of this encounter
--- OUTSIDE RECORDS SUMMARY | 2025-07-27 15:56 | XMS_ITS | Clinical Summary ---
Author Organization [facility] Address [address] [place] [address] Phone Care Team Providers Care Director Stars Name Role Phone Krissy Guzman MD Primary Care Provider [phone] Allergies No known active allergies Medications dicyclomine [...] 10/15/2017 Added by: Sushma Benitez GI at [facility] ctr- Dr Beyer- is on famotidine [...] patient's age to complete this topic Insurance [facility] Care Teams Director Stars Relationship Specialty Start Date End Date Krissy Guzman MD [address] [facility] [place] [address] PCP - General 01/12/18
--- OUTSIDE RECORDS SUMMARY | 2025-07-27 15:56 | XMS_ITS | Clinical Summary ---
Author Organization [facility] Address [address] [place] [address] Phone Care Team Providers Care Biomedical Scientist Name Role Phone Unknown, Unknown Primary Care [...] topic Medical Devices Not on file Insurance ([place]) [address] [facility] Care Teams Biomedical Scientist Relationship Specialty Start Date End Date Unknown, Unknown, PCP - General 08/09/23 Additional Source Comments The information contained in this document represents components of the legal health record. It is not the complete legal health record.[facility]
--- OUTSIDE RECORDS SUMMARY | 2025-07-27 15:56 | XMS_ITS | Clinical Summary ---
Author Organization [employer] Address [address] [facility] [address] [place] [address] Care Team Providers Care Quality Reviewer Name Role Phone AmandeepFiona Unavailable Unavailable Social [...] Pap Smear 2019 COVID-19 Vaccine (1 - 2024-2 6 season) 2025 Influenza Vaccine (#1) 2025 Zoster [...] age to complete this topic Care Teams Quality Reviewer Relationship Specialty Start Date End Date Fiona Bernstein [facility] Navigator 05/05/23
== END 2025-07-27 16:33 | disposition home or self-care (01) ==
LOC: HO.HGI 15:53
PROVIDERS: PCP Nurse Practitioner Family; Visit Provider Nurse Practitioner Family
DX: K21.9 Gastro-esophageal reflux disease without esophagitis (principal); K58.1 Irritable bowel syndrome with constipation; R10.13 Epigastric pain
CPT/HCPCS: 99214